=== PATIENT | female | born 1965 | race Caucasian/White ===

== ENCOUNTER 2020-09-12 10:12 | Emergency (ER) | payer BC, SELFPAY ==
[2020-09-12 10:12] VITALS: BP 118/72; PULSE 63; RESP 16; TEMP 36.4; O2SAT 98
--- NOTE | 2020-09-12 10:24 | ED.WOUNDLAC ---
HPI - Wound/Laceration General Chief Complaint: Wound/Laceration Stated Complaint: R leg lac on back of knee Source: patient and RN notes reviewed Mode of arrival: wheelchair Limitations: no limitations History of Present Illness Onset (ago): minute(s) (20) Extremity Location: Right: lower leg ( Popliteal fossa) Place: home Patient tetanus UTD: No Context: accidental Associated symptoms: pain Review of Systems Review of Systems: All systems reviewed & are unremarkable except as noted in HPI and below PMFSH Past Medical History Medical History (Updated 09/12/20 @ 10:52 by Ryan Naik MD) Fibromyalgia GERD (gastroesophageal reflux disease) Hypothyroidism Surgical History Surgical History (Updated 09/12/20 @ 10:52 by Ryan Naik MD) H/O shoulder surgery left History of lumpectomy of left breast Previous section Social History Social History (Updated 09/12/20 @ 10:52 by Ryan Naik MD) Smoking status: Never smoker Alcohol intake: never Substance use: never Exam Const: General: healthy appearing and no acute distress Nutritional Appearance: obese Orientation/consciousness: patient oriented x3 HENMT: Head: normal to inspection Ears: external ears normal Face and sinus: normal facial exam Eyes: Conjunctivae: conjunctivae normal Pupils: Equal, round and reactive pupils present EOM: EOMs intact bilaterally Neck: Neck: normal visual inspection Resp: Effort & Inspection: normal respiratory effort Auscultation: clear to auscultation bilaterally Cardio: Rate: regular rate Rhythm: regular rhythm GI: GI Palp: Yes Soft to palpation and No Tenderness to palpation present (GI) Auscultation: normal bowel sounds Back/Spine/Pelvis: Cervical Spine: cervical ROM normal Thoracic/Lumbar Spine: thoraco-lumbar ROM normal Skin: Wounds: wounds noted laceration right posterior knee size (2.5 cm) and open Neuro: General: patient oriented x3, moves all extremities, no meningeal signs and no focal motor deficits Speech: normal speech Extrem: General: normal to inspection and no clubbing, cyanosis or edema Psych: Appearance: grossly normal and well kempt Mental Status: mental status grossly normal Affect: normal affect Attitude: cooperative Thought content: Yes Normal thought content present Procedures Laceration Laceration 1: Date: 09/12/20 Site: lower extremity Side (If applicable): right Size (cm): 2.5 Description: linear Depth: simple, single layer (deep into Sub-Q tissue) Local Anesthetic: lidocaine 1% and with epi Amount of anesthesia used (mL): 5 Pre-repair: wound explored, irrigated and deep structures intact ====== Skin Level ====== Skin layer closed with: nylon Size (cm): 4-0 Number of sutures: 6 Technique: running ====== Subcutaneous Layer ====== Subcutaneous layer closed with: vicryl Size: 4-0 Number of sutures: 1 ====== Muscle Layer ====== ====== Tendon Layer ====== Discharge Plan Discharge Clinical Impression: Laceration Patient Disposition: Home, Self-Care Condition: Stable Instructions: Antibiotic Form, Laceration (ED) Additional Instructions: do not get wet for 36 hours. Use Tylenol and or Motrin as needed for pain. Sutures out in 10 days. Prescriptions: New cephalexin 500 mg capsule 500 mg PO Q8H 7 Days Qty: 21 RF: 0 Follow-up/Referrals: Nicki Kasper MD [Primary Care Provider] - Time of Disposition: 10:50
[2020-09-12] MEDS: LIDO 1%/EPINEPHRINE 1:100,000 10 ML VIAL INFILTRATE (10:30)
[2020-09-12] MEDS: TETANUS,DIPHTHERIA,AC PERTUSSIS ADULT 0.5 ML (ADACEL) IM (10:40)
[2020-09-12 10:52] VITALS: PULSE 65; RESP 15; O2SAT 98
== END 2020-09-12 10:55 | disposition home or self-care (01) ==
PROVIDERS: Emergency Provider Emergency Medicine; PCP Family Medicine
DX: S81.811A Laceration without foreign body, right lower leg, initial encounter (principal); W45.8XXA Other foreign body or object entering through skin, initial encounter
CPT/HCPCS: 12031; 90471; 90715; 99283

== ENCOUNTER 2020-09-16 14:53 | Outpatient (CLI) | payer BC, SELFPAY ==
[2020-09-16 15:11] LABS: Hematocrit 36.8 % (35.0-49.0); Hemoglobin 12.4 g/dL (12.0-15.0); Mean Corpuscular HGB Conc 33.7 g/dL (32.0-36.0); Mean Corpuscular Hemoglobin 29.5 pg (27.0-31.0); Mean Corpuscular Volume 87.6 fL (78.0-102.0); Mean Platelet Volume 9.8 fl (9.2-11.8); Platelet Count Result 198 K/mm3 (150-420); Red Cell Distribution Width 13.2 % (11.6-14.4); White Blood Count 6.5 K/mm3 (4.8-10.8)
[2020-09-16 16:08] LABS: Alanine Aminotransferase 28 U/L (14-59); Albumin Level 3.5 g/dL (3.4-5.0); Alkaline Phosphatase 104 U/L (46-116); Anion Gap 12 mmol/L (8-16); Aspartate Amino Transferase 21 U/L (15-37); Bilirubin,Total 0.5 mg/dL (0.00-1.00); Blood Urea Nitrogen 16 mg/dL (7-18); Calcium 9.3 mg/dL (8.5-10.1); Carbon Dioxide 25 mmol/L (21-32); Chloride 105 mmol/L (98-108); Cholesterol 233 mg/dL (0-200); Estimated Glomerular Filt Rate 57; Glucose 95 mg/dL (70-99); HDL Direct 45 mg/dL (40-60); LDL Cholesterol Calculated 141 mg/dL (<130); Osmolality Calculated 295 mOsm/kg (285-295); Sodium 142 mmol/L (136-145); Triglycerides 235 mg/dL (0-150)
[2020-09-16 16:26] LABS: Thyroid Stimulating Hormone Reflex 0.26 u/IU/mL (0.36-3.74)
== END 2020-09-16 14:54 | disposition home or self-care (01) ==
LOC: CHSLAB 14:56
PROVIDERS: PCP Family Medicine; Visit Provider Family Medicine
DX: K21.9 Gastro-esophageal reflux disease without esophagitis (principal); E03.9 Hypothyroidism, unspecified; E11.9 Type 2 diabetes mellitus without complications
CPT/HCPCS: 36415; 80053; 80061; 84439; 84443; 85027

== ENCOUNTER 2020-09-22 13:58 | Outpatient (CLI) | payer BC, SELFPAY ==
--- NOTE | ~2020-09-22 | XR_ITS ---
EXAMINATION: XR knee RT 3V DATE: 09/22/2020 14:25 INDICATION: Right knee pain. TECHNIQUE: 3 views of right knee were obtained. COMPARISON: None. FINDINGS: Bone alignment is normal. No fracture. There is mild osteoarthritis of medial and patellofe moral compartments characterized by tiny marginal osteophytes. No knee joint effusion. IMPRESSION: 1. Mild right knee osteoarthritis. Reviewed, dictated and finalized at location A.
== END 2020-09-22 13:59 | disposition home or self-care (01) ==
LOC: CHSIMG 14:04
PROVIDERS: PCP Family Medicine; Visit Provider Family Medicine
DX: M25.561 Pain in right knee (principal)
CPT/HCPCS: 73562

== ENCOUNTER 2020-10-10 10:32 | Outpatient (CLI) | payer BC, SELFPAY ==
--- NOTE | ~2020-10-10 | MR_ITS ---
EXAMINATION: MR lumbar spine wo con DATE: 10/10/2020 11:22 INDICATION: Spinal stenosis TECHNIQUE: Magnetic resonance imaging (MRI) of the lumbar spine was performed without intravenous con trast. Sequences included sagittal T2-weighted FSE, sagittal T2-weighted FS FSE, sagittal T1-weighted FSE, and axial T2-weighted FSE. COMPARISON: None FINDINGS: 7 degree lumbar dextrocurvature. 3 mm retrolisthesis L5 on S1. Vertebral body heights are normal. Mod erate disc height loss at L1-L2 and L5-S1 with fibrofatty and fibrous vascular endplate changes at irvin th levels. Marrow signal is otherwise normal. Mild disc height loss at L4-L5. The conus medullaris te rminates at L1-L2. There is normal signal in the caudal spinal cord. Paravertebral soft tissues are u nremarkable. The following disc levels are specifically discussed: T12-L1: The disc does not extend beyond the endplate margin. There is mild right and minimal left fac et joint osteoarthritis. There is no neural foraminal stenosis. There is no central canal stenosis. L1-L2: Disc is bulging. There is mild right and minimal left facet joint osteoarthritis. There is no neural foraminal stenosis. There is mild central canal stenosis. L2-L3: The disc does not extend beyond the endplate margin. There is right and moderate left facet shelli int osteoarthritis. There is mild bilateral neural foraminal stenosis. There is no central canal sten osis. L3-L4: Annular fissure with small disc extrusion at the right foraminal zone. There is hypertrophy of the ligamentum flavum. There is moderate bilateral facet joint osteoarthritis. There is mild bilate ral neural foraminal stenosis. There is mild central canal stenosis. L4-L5: Disc is bulging. There is hypertrophy of the ligamentum flavum. There is mild bilateral facet joint osteoarthritis. There is mild bilateral neural foraminal stenosis. There is moderate central c anal stenosis. L5-S1: Disc is bulging and there are small L5 inferior endplate osteophytes at the bilateral neural f oramina. There is mild bilateral facet joint osteoarthritis. There is moderate bilateral neural zeinab inal stenosis. There is no central canal stenosis. IMPRESSION: 1. Mild to moderate lumbar spondylosis. Reviewed, dictated and finalized at location A.
--- NOTE | ~2020-10-10 | XR_ITS ---
EXAMINATION: XR lumbar spine 2-3V DATE: 10/10/2020 11:21 INDICATION: Spinal stenosis, low back pain TECHNIQUE: Anteroposterior and lateral views of the lumbar spine, and cone-down lateral view of the l umbosacral junction were obtained. COMPARISON: None FINDINGS: There is no fracture. There are 3 mm of retrolisthesis of L5 on S1. There is moderate loss of intervertebral disc space height at L5-S1 and mild loss of intervertebral disc space height at L4- 5. Vertebral body heights are maintained. Small degenerative osteophytes project from the anterior en dplates of multiple vertebral bodies. There is facet osteoarthritis of the lower lumbar spine. The irvin wel gas pattern is normal. There are phleboliths of the pelvis. Mild osteoarthritis is noted in the h ips. IMPRESSION: 1. Moderate lower lumbar spondylosis without acute findings. Reviewed, dictated and finalized at location B.
== END 2020-10-10 10:33 | disposition home or self-care (01) ==
LOC: CHSIMG 10:33
PROVIDERS: PCP Family Medicine; Visit Provider Nurse Practitioner Adult Health
DX: M48.062 Spinal stenosis, lumbar region with neurogenic claudication (principal)
CPT/HCPCS: 72100; 72148

== ENCOUNTER 2021-01-06 08:44 | Outpatient (CLI) | payer BC, SELFPAY ==
[2021-01-06 09:59] LABS: Thyroid Stimulating Hormone 2.15 uIU/mL (0.36-3.74)
== END 2021-01-06 08:45 | disposition home or self-care (01) ==
PROVIDERS: PCP Family Medicine; Visit Provider Family Medicine
DX: E03.9 Hypothyroidism, unspecified (principal)
CPT/HCPCS: 36415; 84443

== ENCOUNTER 2021-03-17 17:32 | Outpatient (NON) | payer BC, SELFPAY | END 2021-03-17 17:33 | disposition home or self-care (01) | LOC: CHSLAB 17:33 | PROVIDERS: Visit Provider Nurse Practitioner Family | DX: R30.0 Dysuria (principal) | CPT/HCPCS: 87086 ==

== ENCOUNTER 2021-07-14 07:28 | Outpatient (CLI) | payer BC, SELFPAY ==
[2021-07-14 08:38] LABS: Cholesterol 268 mg/dL (0-200); Free T4 Free Thyroxine 0.83 ng/dL (0.76-1.46); HDL Direct 49 mg/dL (40-60); LDL Cholesterol Calculated 164 mg/dL (<130); Thyroid Stimulating Hormone 2.02 uIU/mL (0.36-3.74); Triglycerides 275 mg/dL (0-150)
== END 2021-07-14 07:29 | disposition home or self-care (01) ==
LOC: CHSLAB 07:31
PROVIDERS: PCP Family Medicine; Visit Provider Nurse Practitioner Family
DX: Z00.00 Encounter for general adult medical examination without abnormal findings (principal); E03.9 Hypothyroidism, unspecified
CPT/HCPCS: 36415; 80061; 84439; 84443

== ENCOUNTER 2022-01-25 16:40 | Outpatient (CLI) | payer BC, SELFPAY ==
--- NOTE | ~2022-01-25 | XR_ITS ---
XR chest 2V DATE: 01/25/2022 16:53 INDICATION: Shortness of breath. Asthma exacerbation. TECHNIQUE: 2 views COMPARISON: 01/14/2016 2 view chest FINDINGS: Heart size is within normal limits. There is mild aortic tortuosity. No hilar or mediastina l enlargement. No pulmonary infiltrate or consolidation, pleural effusion or pulmonary vascular congestion or pneumo thorax is detected. IMPRESSION: No active cardiopulmonary disease Reviewed, dictated and finalized at location A.
== END 2022-01-25 16:41 | disposition home or self-care (01) ==
LOC: CHSIMG 16:41
PROVIDERS: PCP Family Medicine; Visit Provider Family Medicine
DX: J45.901 Unspecified asthma with (acute) exacerbation (principal)
CPT/HCPCS: 71046

== ENCOUNTER 2023-01-03 07:04 | Outpatient (CLI) | payer OTHER, SELFPAY ==
[2023-01-03 07:25] LABS: Hemoglobin A1C 5.6 % (<5.7)
[2023-01-03 07:55] LABS: Alanine Aminotransferase 24 U/L (14-59); Albumin Level 3.5 g/dL (3.4-5.0); Alkaline Phosphatase 86 U/L (46-116); Anion Gap 9 mmol/L (8-16); Aspartate Amino Transferase 15 U/L (15-37); Bilirubin,Total 0.8 mg/dL (0.00-1.00); Blood Urea Nitrogen 12 mg/dL (7-18); Calcium 9.4 mg/dL (8.5-10.1); Carbon Dioxide 27 mmol/L (21-32); Chloride 106 mmol/L (98-108); Cholesterol 260 mg/dL (0-200); Estimated Glomerular Filt Rate 47; Free T4 Free Thyroxine 1.08 ng/dL (0.76-1.46); Glucose 100 mg/dL (70-99); HDL Direct 59 mg/dL (40-60); LDL Cholesterol Calculated 171 mg/dL (<130); Osmolality Calculated 293 mOsm/kg (285-295); Potassium 4.2 mmol/L (3.5-5.1); Sodium 142 mmol/L (136-145); Thyroid Stimulating Hormone 1.51 uIU/mL (0.36-3.74); Total Protein 6.8 g/dL (6.4-8.2); Triglycerides 149 mg/dL (0-150)
[2023-01-05 06:21] LABS: Total Triiodothyronine (T3) 104.2 ng/dL (76-181)
== END 2023-01-03 07:05 | disposition home or self-care (01) ==
LOC: CHSLAB 07:06
PROVIDERS: PCP Emergency Medicine; Visit Provider Emergency Medicine
DX: E03.9 Hypothyroidism, unspecified (principal); E66.9 Obesity, unspecified
CPT/HCPCS: 36415; 80053; 80061; 83036; 84439; 84443; 84480

== ENCOUNTER 2023-04-28 12:47 | Outpatient (CLI) | payer OTHER, SELFPAY ==
--- NOTE | ~2023-04-28 | XR_ITS ---
XR shoulder RT min 2V DATE: 04/28/2023 14:50 INDICATION: Right shoulder pain, limited range of motion after a fall in February 2023 TECHNIQUE: 4 views COMPARISON: None FINDINGS: There is mild spurring of the glenoid process consistent with mild glenohumeral osteoarthri tis. Normal alignment at the glenohumeral and acromioclavicular joints. No fracture or dislocation, p eriosteal reaction or bone destruction or abnormal right shoulder soft tissue calcification. Moderate degenerative disc disease and prominent uncovertebral joint spurring is noted C5-6 and C6-7. IMPRESSION: Lower cervical spondylosis Mild right glenohumeral osteoarthritis Reviewed, dictated and finalized at location B. [facility]
== END 2023-04-28 12:48 ==
PROVIDERS: PCP Emergency Medicine; Visit Provider Emergency Medicine
DX: M25.511 Pain in right shoulder (principal); M43.02 Spondylolysis, cervical region; M19.011 Primary osteoarthritis, right shoulder
CPT/HCPCS: 73030

== ENCOUNTER 2023-06-07 20:16 | Emergency (ER) | payer OTHER, MEDICAID, SELFPAY ==
--- NOTE | ~2023-06-07 | CT_ITS ---
EXAMINATION: CT BRAIN W/O DATE: 06/07/2023 22:26 INDICATION: Head injury after fall TECHNIQUE: Computed tomography (CT) of the head was performed without intravenous contrast. The dose- length product was 605.33 mGy-cm. Automated exposure control and iterative reconstruction technique w ere employed. COMPARISON: No prior studies for comparison. FINDINGS: Normal brain parenchymal volume for age. Normal ferrari-white differentiation. No acute intrac ranial hemorrhage, infarction, mass or mass effect. There are scattered mild periventricular and subc ortical white matter changes, most likely related to small vessel ischemic disease (microangiopathy). No ventriculomegaly or midline shift. Midline sagittal images demonstrate a normal corpus callosum, c raniovertebral junction and sella turcica. Basilar cisterns are patent. There is mucosal thickening of the sphenoid and ethmoid sinuses. Mastoids are pneumatized. No depress ed skull fractures. IMPRESSION: 1. No acute intracranial abnormality. 2: Mild sinus disease. Reviewed, dictated and finalized at location A.
--- NOTE | ~2023-06-07 | XR_ITS ---
XR shoulder LT min 2V 06/07/2023 22:28 Indication: Shoulder pain after fall Procedure: 2 views left shoulder Comparison: No prior studies for comparison. Findings: No fracture or traumatic malalignment. There are changes of clavicular osteotomy. No soft t issue abnormality. No foreign body. Impression: 1: No acute fracture. Reviewed, dictated and finalized at location A. Impression: 1: No acute fracture.
--- NOTE | ~2023-06-07 | CT_ITS ---
EXAMINATION: CT cervical spine wo con DATE: 06/07/2023 22:28 INDICATION: Neck pain after fall TECHNIQUE: Computed tomography (CT) of the cervical spine was performed without intravenous contrast. The dose-length product was 1088 mGy-cm. Automated exposure control and iterative reconstruction haile hnique were employed. COMPARISON: None FINDINGS: Normal cervical alignment. There is degenerative disc disease at C5-6 and C6-7. Small dorsa l osteophytes present at C5-6. Craniovertebral junction is normal. Odontoid process is normal. No bertha dence for perched facet. No significant paraspinal soft tissue abnormality. Lung apices are normal. M oderate lower uncinate and facet degenerative change. IMPRESSION: 1. No acute abnormality of the cervical spine. Reviewed, dictated and finalized at location A.
--- NOTE | ~2023-06-07 | CT_ITS ---
EXAMINATION: CT chest abdomen pelvis wo con DATE: 06/07/2023 22:46 CDT INDICATION: Accidental fall. Chest and abdomen pain. TECHNIQUE: Computed tomography (CT) of the chest, abdomen, and pelvis was performed without intraveno us contrast. The dose-length product was 1562.70 mGy-cm. Automated exposure control and iterative rec onstruction technique were employed. COMPARISON: CT dated 07/13/2007 FINDINGS: CHEST CT: Heart size normal. No significant pleural or pericardial effusion. No thoracic lymphadenopathy. No si gnificant vascular abnormality. No focal airspace consolidation. No endobronchial lesions. There is d ependent atelectasis. No pneumothorax. ABDOMEN/PELVIS CT: There are acute left transverse process fractures at L1 and L2. There is mild multilevel thoracic and lumbar spondylosis. Bladder is moderately distended. There are gallstones. The liver, spleen, pancre as, adrenal glands and kidneys are unremarkable. Nonobstructive bowel gas pattern. Small fat-containi ng umbilical hernia. No free air or free fluid. No significant vascular abnormality. No lymphadenopat hy. IMPRESSION: 1. Acute left L1 and L2 transverse process fractures. 2: Cholelithiasis. Reviewed, dictated and finalized at location A.
--- NOTE | ~2023-06-07 | CT_ITS ---
EXAMINATION: CT lumbar spine wo con DATE: 06/07/2023 22:27 INDICATION: Back pain after fall TECHNIQUE: Computed tomography (CT) of the lumbar spine was performed without intravenous contrast. T he dose-length product was 1562.70 mGy-cm. Automated exposure control and iterative reconstruction technique were employed. COMPARISON: None FINDINGS: Vertebral body heights are maintained. There is disc narrowing and vacuum phenomena at L4-5 and L5-S1. There is mild dextroscoliosis. There is facet degenerative change of the mid and lower frantz mbar spine. There is bilateral neural foraminal narrowing at L5-S1. No acute fracture or traumatic ma lalignment. IMPRESSION: 1. No acute abnormality of the lumbar spine. 2: Moderate lumbar spondylosis with bilateral neural foraminal narrowing at L5-S1. Reviewed, dictated and finalized at location A. IMPRESSION: 1. No acute abnormality of the lumbar spine. 2: Moderate lumbar spondylosis with bilateral neural foraminal narrowing at L5- S1.
[2023-06-07 20:21] VITALS: BP 128/95; PULSE 87; RESP 20; TEMP 36.2; O2SAT 100
--- NOTE | 2023-06-07 20:46 | ED.FALL ---
HPI - Fall General Chief Complaint: Fall Stated Complaint: fall Source: patient Mode of arrival: ambulatory Limitations: no limitations History of Present Illness HPI Narrative: 57 old female with asthma, fibromyalgia was mopping floor when she slipped and fell on her buttocks. She presents with -- head injury. She fell on left side of her head. No loss of consciousness. No headache or vomiting. -- Mid and lower back pain. -- Left shoulder pain with decreased range of motion. -- Left hip pain with decreased range of motion no ENT bleeding no bruising or laceration noted. MD complaint: fall Onset (ago): hour(s) ( 2 hours ago) Fall from: standing Fall witnessed: no Place fall occurred: home Loss of consciousness: none Prolonged down time: no Symptoms prior to fall: none Context: tripped/slipped Location of injury: head and back Location of injury - extremities: Left: shoulder and Right: thigh Quality: aching Associated symptoms (after fall): headache, neck pain and other ( back pain, pain, left hip pain) Related Data Home Medications Medication Instructions Recorded Confirmed hydrocodone 5 mg-acetaminophen 325 1 tablet PO Q6-12H PRN Pain 09/12/20 04/21/23 mg tablet albuterol sulfate 90 mcg/actuation 1 puff inhalation Q4H PRN 12/21/22 04/21/23 aerosol inhaler nortriptyline 25 mg capsule 25 mg PO DAILY 12/21/22 04/21/23 pregabalin 200 mg capsule 200 mg PO BID 12/21/22 04/21/23 Allergies Allergy/AdvReac Type Severity Reaction Status Date / Time Sulfa (Sulfonamide Allergy Severe Swelling Verified 04/21/23 13:11 Antibiotics) of Lip/Tongue/Throat Review of Systems Review of Systems: All systems reviewed & are unremarkable except as noted in HPI and below Constitutional: Constitutional: Reports as per HPI and Reports no additional constitutional complaints Eyes: Eyes: Reports as per HPI and Reports no additional eye complaints ENT: Reports system reviewed and no additional complaints, except as documented and Reports as per HPI Cardiovascular: Cardiovascular: Reports as per HPI and Reports no additional cardiovascular complaints Respiratory: Respiratory: Reports as per HPI and Reports no additional respiratory complaints Gastrointestinal: Gastrointestinal: Reports as per HPI and Reports no additional gastrointestinal complaints Genitourinary: Genitourinary: Reports no additional female genitourinary complaints and Reports as per HPI Musculoskeletal: Musculoskeletal: Reports no additional musculoskeletal complaints, Reports as per HPI, Reports back pain and Reports arthralgias Comments: neck pain, mid and lower back pain, left shoulder pain, left hip pain, patient was able to stand up after the fall. Integumentary/Breasts: Skin/Breast: Reports system reviewed and no additional complaints, except as docu and Reports as per HPI Neurologic: Reports system reviewed and no additional complaints, except as documented and Reports as per HPI Psychiatric: Psychiatric: Reports no additional psychiatric complaints and Reports as per HPI Endocrine: Endocrine: Reports no additional endocrine complaints and Reports as per HPI Hematologic/Lymphatic: Hematologic/Lymphatic: Reports no additional hematologic/lymphatic complaints and Reports as per HPI Allergic/Immunologic: Allergic/Immunologic: Reports no additional allergic/immunologic complaints and Reports as per HPI PMFSH Past Medical History Medical History Asthma Fibromyalgia GERD (gastroesophageal reflux disease) Hypothyroidism Surgical History Surgical History H/O shoulder surgery left History of lumpectomy of left breast Previous section Social History Social History Smoking status: Never smoker Alcohol intake: never Substance use: never Substance
[2023-06-07] MEDS: HYDROmorphone HCL INJ (*CRX) 2 MG/ML VIAL 0.5 MG IM ×2 (21:22→23:05)
[2023-06-07] MEDS: ONDANSETRON HCL ODT 4 MG TABLET PO (21:23)
--- NOTE | 2023-06-07 21:26 | PC.NURSE ---
PATIENT MEDICATED FOR PAIN, SEE MAR. SON AT BEDSIDE. PATIENT TEARFUL, MOANING AND IN INTENSE PAIN. IMAGING AT BEDSIDE.
--- NOTE | 2023-06-07 22:16 | PC.NURSE ---
ERP AT BEDSIDE. PATIENT REPORTS IMPROVED PAIN, AWAITING RESULTS OF IMAGING.
[2023-06-07 23:09] VITALS: BP 106/69; PULSE 75; RESP 18; TEMP 36.2; O2SAT 100
--- NOTE | 2023-06-07 23:19 | PC.NURSE ---
DR. AMANDA AT PATIENT BEDSIDE FOR UPDATE OF IMAGING. PATIENT SON REMAINS AT BEDSIDE. PATIENT DENIES FURTHER NEEDS. RN MONITORING. CALL LIGHT WITHIN REACH.
== END 2023-06-07 23:59 | disposition home or self-care (01) ==
PROVIDERS: Emergency Provider Internal Medicine Critical Care Medicine; PCP Emergency Medicine
DX: S32.009A Unspecified fracture of unspecified lumbar vertebra, initial encounter for closed fracture (principal); S09.90XA Unspecified injury of head, initial encounter; E03.9 Hypothyroidism, unspecified; W01.0XXA Fall on same level from slipping, tripping and stumbling without subsequent striking against object, initial encounter; Y92.009 Unspecified place in unspecified non-institutional (private) residence as the place of occurrence of the external cause
CPT/HCPCS: 70450; 71250; 72125; 72131; 73030; 74176; 96372; 99284; A9270; J1170

== ENCOUNTER 2024-04-23 09:13 | Outpatient (CLI) | payer MEDICAID, SELFPAY ==
[2024-04-23 09:34] LABS: Basophils Absolute Auto 0.03 K/mm3 (0.00-0.10); Basophils Percent Auto 0.5 % (0.0-1.0); Eosinophils Absolute Auto 0.18 K/mm3 (0.02-0.50); Eosinophils Percent Auto 3.3 % (1.0-6.0); Hematocrit 39.8 % (35.0-49.0); Hemoglobin 12.6 g/dL (12.0-15.0); Immature Granulocyte Absolute 0.02 K/mm3 (0.00-0.00); Immature Granulocyte Percent A 0.4 % (0.0-0.0); Lymphocytes Absolute Auto 2.15 K/mm3 (1.10-4.50); Lymphocytes Percent Auto 39.3 % (18.0-42.0); Mean Corpuscular HGB Conc 31.7 g/dL (32-36); Mean Corpuscular Hemoglobin 28.9 pg (27.0-31.0); Mean Corpuscular Volume 91.3 fL (78.0-102.0); Mean Platelet Volume 8.8 fl (9.2-11.8); Monocytes Absolute Auto 0.46 K/mm3 (0.10-0.90); Monocytes Percent Auto 8.4 % (2.0-11.0); Neutrophils Absolute Auto 2.63 K/mm3 (1.70-7.20); Neutrophils Percent Auto 48.1 % (50.0-70.0); Platelet Count Result 271 K/mm3 (150-420); Red Blood Count 4.36 M/mm3 (4.20-5.40); Red Cell Distribution Width 13.6 % (11.6-14.4); White Blood Count 5.5 K/mm3 (4.8-10.8)
--- OUTSIDE RECORDS SUMMARY | 2024-04-23 09:38 | XMS_ITS ---
Care Plan - [facility] Created on: April 23, 2024 SHIRA MERAZ : 1965 Sex: Female Author Organization [facility] Address [address] [place] [address] Phone Care Team Providers Care Used Car Sales Manager Name Role Phone MARVIN HOOVER Unavailable [phone] JUAN JOSE AMIN DO Primary Care Provider [phone]
--- OUTSIDE RECORDS SUMMARY | 2024-04-23 09:38 | XMS_ITS | Clinical Summary ---
Author Organization [facility] Address [address] [place] [address] Phone Care Team Providers Care Senior Research Scientist Name Role Phone KALIA MORROW-CLARITAMARVIN Unavailable [phone] JUAN JOSE AMIN DO Primary Care Provider [phone] Reason for Visit and Chief Complaint The Chief Complaint is: 3 MO FU Plan of Treatment Education and Decision Aids were provided during visit for: Pill Count: HYDROCODONE Last Documented On 3 8:49AM ; [facility] Pill Count: Patient did not bring pain medication to appointment for pill count, per policy. Advised in order to continue to safely prescribe opioids, medication must be brought to each appointment Last Documented On 3 8:49AM ; [facility] Assessments Includes: Assessments from this encounter Findings - Sacroiliitis [M46.1 - Sacroiliitis, not elsewhere classified] - Last Documented On 02/02/2023 9:08AM ; [facility] - Right trochanteric bursitis [M70.61 - Trochanteric bursitis, right hip] - Last Documented On 02/02/2023 9:08AM ; [facility] - Left trochanteric bursitis [M70.62 - Trochanteric bursitis, left hip] - Last Documented On 02/02/2023 9:08AM ; 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 Advised in order to continue to safely prescribe opioids, medication must be brought to each appointment Last Documented On 3 8:49AM ; [facility] Medical Equipment - Implanted Devices Includes: Current Devices No Medical Equipment Recorded Medications Includes: Medications discussed during this encounter and other current Medications Discontinued / Stopped on this date MARVIN CENTENO on 10/11/2022 Nortriptyline HCl 25 MG Oral Capsule Prov ider: MARIVN CENTENO Diagnosis: Last Documented On 02/02/2023 8:47AM By Maggie MEDRANO ; [facility] New / Renewed during this visit MARVIN CENTENO on 02/02/2023 Celecoxib 200 MG Oral Capsule Provider: MARVIN CENTENO 90 day supply: 90 capsule, 0 refills 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, lumbar region 1 capsule daily with a meal Pharmacy: [facility] alfon[address], [phone] - Last Documented On 4 9:07AM By MARVIN CENTENO ; [facility] Current Medications (continue as prescribed) Pregabalin 200 MG Oral Capsule 07/10/2023 Provider: MARVIN NICHOLEBC Diagnosis: TAKE ONE CAPSULE BY MOUTH TWICE A DAY Last Documented On 4 4:42PM [facility] ; [facility] Nortriptyline HCl 25 MG Oral Capsule 05/23/2023 Prov ider: MARVIN NICHOLE Diagnosis: TAKE ONE CAPSULE BY MOUTH DAILY Last Documented On 4 1:12PM [facility] ; [facility] HYDROcodone-Acetaminophen 5- 325 MG Oral Tablet 05/03/2023 Provider: MARVIN NICHOLE 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, lumbar region 1/2 to 1 po daily prn Last Documented On 4 9:17AM [facility] ; [facility] Celecoxib 200 MG Oral Capsule 05/03/2023 Provider: MARVIN NICHOLE 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, lumbar region 1 capsule daily with a meal Last Documented On 4 9:17AM By [facility] ; [facility] Levothyroxine Sodium 88 MCG Oral Tablet 02/01/2023 Jagjit hess: Diagnosis: Last Documented On 02/02/2023 8:48AM By Maggie MEDRANO ; [facility] Montelukast Sodium 10 MG Oral Tablet 01/11/2023 Prov ider: JUAN JOSE AMIN DO Diagnosis: Last Documented On 02/02/2023 8:48AM By Maggie MEDRANO ; [facility] DULoxetine HCl 20 MG Oral Ca psule Delayed Release Particles 11/29/2022 Provider: TOMMY WATERS MD Diagnosis: Last Documented On 02/02/2023 8:48AM By Maggie MEDRANO ; [facility] Albuterol Sulfate HFA 108 (9 0 Base) MCG/ACT Inhalation Aerosol Solution 10/07/2020 Provider: Diagnosis: Last Documented On 3 9:52AM By [facility]- ; [facility] Omeprazole 40 MG Oral Capsule Delayed Release 10/08/19 Provider: Diagnosis: Last Documented On 3 9:52AM By JENNIFER TEE ; [facility] Euthyrox 112 MCG Oral Tablet 10/07/2020 Provider: Diagnosis: Last Documented On 3 9:52AM By JENNIFER TEE ; [facility] Medications Administered Includes: Administered Medications from this encounter No Administered Medications Recorded Vital Signs Includes: Vital Signs from this encounter Vital Name 02/02/2023 08:44A Blood Pressure Sitting L 100/72 Pulse Rate-Sitting (bpm) 74 Temp-Temporal 96.6 Height (in) 65 Weight (lb) 202 Body Mass Index 33.6 Body Surface Area 2 Pain Level 3 Oxygen Saturation (%) 98 Last Documented: On 02/02/2023 8:47AM ; [facility] Results Includes: Results discussed during this encounter No Results Recorded For Specified Dates History of Present Illness Includes: History of Present Illness from this encounter HPI - Allergy list reviewed - Problem list reviewed - Medication reconciliation performed - Medication list reviewed - Prescription Drug Monitoring Program website checked. 09/07/22 - How much of the medication are you taking a day? PRN - Last dose of medication? MONDAY - Last drug screen appropriate 09/07/22 Discussion: Patient returns in follow-up for medication. She suffers from chronic low back pain. Symptoms have been tolerable. She continues home exercises. Celebrex, nortriptyline and pregabalin are used on a daily basis with benefit. Hydrocodone is prescribed for severe pain. She uses this sparingly. She is not in need of a refill at this time. Overall, medication regimen is providing substantial pain relief and improved function. She has no new complaints today. Past note: Patient presents in follow-up for chronic pain. Low back pain has been somewhat bothersome, but tolerable with the use of current medication regimen and stretches. Pregabalin is used twice daily with benefit. Celebrex also provides good relief. Nortriptyline caused side effects. Hydrocodone is used sparingly for severe pain only. She does not need a refill of this at this time. Overall, medication helps and allows her to maintain function levels. She continues home exercises as tolerated. [place] prescription monitoring site appropriate. Past visit 09/07/22: Patient presents in follow up for polyarthralgia, low back pain and generalized pain related to fibromyalgia. She reports some increased low back pain the last month or so. She did well with SI injections, but is hesitant to repeat these as they were extremely painful for her. She continues home exercises as tolerated. Patient stopped celecoxib a few weeks ago and looking back admits her pain has likely increased as a result. Amitriptyline helps at night, but does cause dry mouth. We can try nortriptyline and see if there are less side effects. Hydrocodone is used for more severe pain, sparingly. She was given #15 in May. She does need a refill. Past note: Patient presents in follow up to bilateral SI joint injections 3 weeks ago. She reports 75-80% relief with improved mobility. She also underwent trochanteric bursa injections last office visit that was very beneficial. She is doing well with current dosage of celebrex, pregabalin and amitriptyline. She stopped atorvastatin (per pcp), which seems to have helped myalgia. She has no new complaints. There are days her polyarthralgia and back pain , she will utilize 1/2-1 hydrocodone as needed. #15 given intermittently, she would like a refill. Encouraged to use sparingly and not for fibromyalgia symptoms. Past note: Patient here today for follow-up. She was unable to get the epidural ordered at her last office visit. She had a family emergency and had to leave town. Her authorization in the meantime. Patient wanted to follow back up to discuss her current pain issues. She states she has pain in the lateral hips that is significant. States it is very tender just to touch these areas and it is difficult to lay on her side at night, R>L. Reports previous trochanteric bursa injections that were beneficial. Additionally, she has pain in the low back that radiates into the buttock and groin area and a little bit down the right anterior thigh. The left side is mostly in the buttock and hip area. Getting up and down out of the chair or in and out of the car or trying to go up and down steps makes this pain much worse. She has difficulty even sitting on her right side because it is so tender. States she has a pillow at her office she has to sit on or she has to lean to the left side but then this side starts hurting.Walking seems to help a little bit with this pain but at work she sits a lot. She is doing heat, home exercises, and stretching without relief. On exam she is extremely tender over the SI joints. PRIOR VISIT: Patient presents in follow-up for low back pain. She describes return of radicular symptoms the last 3-4 weeks. This radiates to the bilateral lower extremities in multi dermatomal pattern. There are no motor or sensory changes. She has continued home exercises consistently since therapy was done last year. She failed conservative treatment, including physical therapy, activity modification and medication last year and obtained resolution of radicular symptoms with lumbar epidural injection in January 2021. She reports symptoms are progressing and she would like to address them before they fully limit her ability to function. She is having a difficult time standing for more than 20 minutes without pain. I recommend repeat epidural at this time. Past note: Patient returns in follow-up to right and left L3, L4, L5 RF ablation 3-4 weeks ago. She reports 80% relief ongoing. She is complaining of pain over the trochanteric bursa and is tender over the right SI joint. Overall, she is able to be more active with less back pain. She would like a trochanteric bursa injection today. She continues HEP. Imaging: All relevant imaging available was personally reviewed with the patient today with the following tests and results noted: MRI L spine 10/12/20: mild to moderate lumbar spondylosis. Disc bulging and small L5 inferior endplate osteophytes at bilateral neural foraminal narrowing moderate at L5-S1. At L4-5 facet hypertrophy, ligamentum flavum hypertrophy, mild bilateral neural foraminal stenosis and moderate central canal stenosis. At L3-4 hypertrophy of ligamentum flavum. Moderate facet osteoarthritis. Mild bilateral neural foraminal stenosis and mild central canal stenosis. Mild to moderate facet arthropathy at other levels. X-ray L spine 10/12/20 moderate lower lumbar spondylosis with retro thesis of L5 on S1 Social History Description Last Updated Tobacco non-user 05/03/2023 Last Documented On 3 8:43AM ; [facility] [PHQ-2] Patient Health Questionnaire 2 i tem total score: 15 (Scale: 0-6) 10/07/2020 Last Documented On 3 8:43AM ; [facility] Difficulty walking 10/07/2020 Last Documented On 3 8:43AM ; [facility] Smoking Status Unknown Procedures and Surgical History Includes: Procedures from this encounter Procedures Code Diagnosis Performing Provider Service L ocation Service Date use of tobacco assessment performed 1000F Last Documented On 3 8:49AM ; [facility] standardized depression screening: negative for symptoms 3351F Last Documented On 3 8:44AM ; [facility] review of medications documented 1160F Last Documented On 3 8:49AM ; [facility] assessment of suicide risk performed Last Documented On 3 8:44AM ; [facility] screening for adult depression: impressi on and score 0 Last Documented On 3 8:44AM ; [facility] SOAPP-R: total score 4 Last Documented On 3 8:44AM ; [facility] Medical History Includes: Medical History addressed during this encounter Description Last Updated Currently wearing eyeglasses 02/11/2022 Last Documented On 3 8:44AM ; [facility] Deep muscle stimulation 02/11/2022 Last Documented On 3 8:44AM ; [facility] Injection/Nerve blocks 02/11/2022 Last Documented On 3 8:44AM ; [facility] Moderate to severe pain 02/11/2022 Last Documented On 3 8:44AM ; [facility] Physical therapy 02/11/2022 Last Documented On 3 8:44AM ; [facility] Please list all illnesses/co nditions you have been diagnosed with: Fibromyalgia Degeneration of back 02/11/2022 Last Documented On 3 8:44AM ; [facility] Treatment with TENS unit 02/11/2022 Last Documented On 3 8:44AM ; [facility] Wearing contact lenses 02/11/2022 Last Documented On 3 8:44AM ; [facility] Family History Includes: Family History addressed during this encounter Description Last Updated Family history of Arthritis 02/11/2022 Last Documented On 3 8:44AM ; [facility] Family history of ischemic heart disease 02/11/2022 Last Documented On 3 8:44AM ; [facility] Family history of kidney disease 022 Last Documented On 3 8:44AM ; [facility] Maternal history of Arthritis 02/11/2022 Last Documented On 3 8:44AM ; [facility] Maternal history of reported family hist ory of seizures 02/11/2022 Last Documented On 3 8:44AM ; [facility] Sororal history of stroke/paralysis 01/25 Last Documented On 3 8:44AM ; [facility] Review of Systems Includes: Review of Systems from this encounter Systemic: No systemic symptoms other than noted. Fatigue and recent weight change. Head: No head symptoms other then noted. Neck: No neck pain. Cardiovascular: No cardiovascular symptoms other than noted. Pulmonary: No pulmonary symptoms other than noted. Wheezing. Gastrointestinal: No gastrointestinal symptoms other than noted. Endocrine: No endocrine symptoms other than noted. Polydipsia and temperature intolerance. Hematologic: No easy bleeding and no tendency for easy bruising. Musculoskeletal: Back pain, muscle aches, and pain localized to one or more joints. Neurological: No fainting passing out with needles or medical procedures. Psychological: No psychological symptoms other than noted. Skin: No skin symptoms other than noted. Dry skin. Mental Status Includes: Mental Status from this encounter No Mental Status Recorded Functional Status Includes: Functional Status from this encounter No Functional Status Recorded Physical Exam Includes: Physical Exam from this encounter Allergies Includes: Active Allergies Substance Type Reaction Onset Date Resolved Date Statu s Sulfa Antibiotics Allergy 10/07/2020 A ctive Last Documented On 4 8:38AM ; [facility] Encounters Encounter Provider Location Date Check-In Time Check-Out Time Diagnosis PAIN MANAGEMENT FOLLOW UP MARVIN MOTTA ANP-[facility] 02/03/20 23 8:20AM 9:02AM Chronic Pain Syndrome,Sacroil iitis,Fibromyalg ia,Spondylosis Without Myelopathy Or Radiculopathy Lumbar Region,Spinal Stenosis Lumbosacral,Burs itis Trochanteric Right,Bursitis Trochanteric Left,Custodial Use of Opiate Analgesic Insurance Includes: Active Insurance Policies Plan Name Member ID Group # Subscriber Relationship Effect mya Dates 1 - MEDICAID [place] [employer] [facility] [id number] SHIRA MERAZ Self Clinical Notes Includes: Clinical Notes from this encounter * Progress note Date Encounter Last Documented by 02/02/2023 PAIN MANAGEMENT FOLLOW UP Last d ocumented on 02/02/2023; 9:08 AM, MARVIN MOTTA ANP-; [facility] Chief Complaint The Chief Complaint is: 3 MO FU. History of Present Illness - Allergy list reviewed - Problem list reviewed - Medication reconciliation performed - Medication list reviewed - Prescription Drug Monitoring Program website checked. 09/07/22 - How much of the medication are you taking a day? PRN - Last dose of medication? MONDAY - Last drug screen appropriate 09/07/22 Discussion: Patient returns in follow-up for medication. She suffers from chronic low back pain. Symptoms have been tolerable. She continues home exercises. Celebrex, nortriptyline and pregabalin are used on a daily basis with benefit. Hydrocodone is prescribed for severe pain. She uses this sparingly. She is not in need of a refill at this time. Overall, medication regimen is providing substantial pain relief and improved function. She has no new complaints today. Past note: Patient presents in follow-up for chronic pain. Low back pain has been somewhat bothersome, but tolerable with the use of current medication regimen and stretches. Pregabalin is used twice daily with benefit. Celebrex also provides good relief. Nortriptyline caused side effects. Hydrocodone is used sparingly for severe pain only. She does not need a refill of this at this time. Overall, medication helps and allows her to maintain function levels. She continues home exercises as tolerated. [place] prescription monitoring site appropriate. Past visit 09/07/22: Patient presents in follow up for polyarthralgia, low back pain and generalized pain related to fibromyalgia. She reports some increased low back pain the last month or so. She did well with SI injections, but is hesitant to repeat these as they were extremely painful for her. She continues home exercises as tolerated. Patient stopped celecoxib a few weeks ago and looking back admits her pain has likely increased as a result. Amitriptyline helps at night, but does cause dry mouth. We can try nortriptyline and see if there are less side effects. Hydrocodone is used for more severe pain, sparingly. She was given #15 in May. She does need a refill. Past note: Patient presents in follow up to bilateral SI joint injections 3 weeks ago. She reports 75-80% relief with improved mobility. She also underwent trochanteric bursa injections last office visit that was very beneficial. She is doing well with current dosage of celebrex, pregabalin and amitriptyline. She stopped atorvastatin (per pcp), which seems to have helped myalgia. She has no new complaints. There are days her polyarthralgia and back pain , she will utilize 1/2-1 hydrocodone as needed. #15 given intermittently, she would like a refill. Encouraged to use sparingly and not for fibromyalgia symptoms. Past note: Patient here today for follow-up. She was unable to get the epidural ordered at her last office visit. She had a family emergency and had to leave town. Her authorization in the meantime. Patient wanted to follow back up to discuss her current pain issues. She states she has pain in the lateral hips that is significant. States it is very tender just to touch these areas and it is difficult to lay on her side at night, R>L. Reports previous trochanteric bursa injections that were beneficial. Additionally, she has pain in the low back that radiates into the buttock and groin area and a little bit down the right anterior thigh. The left side is mostly in the buttock and hip area. Getting up and down out of the chair or in and out of the car or trying to go up and down steps makes this pain much worse. She has difficulty even sitting on her right side because it is so tender. States she has a pillow at her office she has to sit on or she has to lean to the left side but then this side starts hurting.Walking seems to help a little bit with this pain but at work she sits a lot. She is doing heat, home exercises, and stretching without relief. On exam she is extremely tender over the SI joints. PRIOR VISIT: Patient presents in follow-up for low back pain. She describes return of radicular symptoms the last 3-4 weeks. This radiates to the bilateral lower extremities in multi dermatomal pattern. There are no motor or sensory changes. She has continued home exercises consistently since therapy was done last year. She failed conservative treatment, including physical therapy, activity modification and medication last year and obtained resolution of radicular symptoms with lumbar epidural injection in January 2021. She reports symptoms are progressing and she would like to address them before they fully limit her ability to function. She is having a difficult time standing for more than 20 minutes without pain. I recommend repeat epidural at this time. Past note: Patient returns in follow-up to right and left L3, L4, L5 RF ablation 3-4 weeks ago. She reports 80% relief ongoing. She is complaining of pain over the trochanteric bursa and is tender over the right SI joint. Overall, she is able to be more active with less back pain. She would like a trochanteric bursa injection today. She continues HEP. Imaging: All relevant imaging available was personally reviewed with the patient today with the following tests and results noted: MRI L spine 10/12/20: mild to moderate lumbar spondylosis. Disc bulging and small L5 inferior endplate osteophytes at bilateral neural foraminal narrowing moderate at L5-S1. At L4-5 facet hypertrophy, ligamentum flavum hypertrophy, mild bilateral neural foraminal stenosis and moderate central canal stenosis. At L3-4 hypertrophy of ligamentum flavum. Moderate facet osteoarthritis. Mild bilateral neural foraminal stenosis and mild central canal stenosis. Mild to moderate facet arthropathy at other levels. X-ray L spine 10/12/20 moderate lower lumbar spondylosis with retro thesis of L5 on S1 Test Conclusions PHQ-9 Score: 0 Date: 06/02/22 BPI Score: Date: MiDAS Score: Date: SOAPP-R Score: 4 LOW Date: 06/02/22 Past Medical/Surgical History Reported: Injection/Nerve blocks, Deep muscle stimulation, Treatment with TENS unit, Physical therapy, and Please list all illnesses/conditions you have been diagnosed with: Fibromyalgia Degeneration of back. Medical: Currently wearing eyeglasses, currently wearing contact lenses, and orthopedic history Left Knee Score mild pain Moderate to severe pain. Current Medication - Albuterol Sulfate HFA 108 (90 Base) MCG/ACT Inhalation Aerosol Solution as directed 0 days, 0 refills - Celecoxib 200 MG Oral Capsule 1 capsule daily with a meal, 90 days, 0 refills - DULoxetine HCl 20 MG Oral Capsule Delayed Release Particles 1 capsule daily 30 days, 0 refills - Euthyrox 112 MCG Oral Tablet One tablet daily 0 days, 0 refills - HYDROcodone-Acetaminophen 5-325 MG Oral Tablet 1 po daily prn for severe pain, 15 days, 0 refills - Levothyroxine Sodium 88 MCG Oral Tablet One tablet daily 30 days, 0 refills - Montelukast Sodium 10 MG Oral Tablet One tablet daily 30 days, 0 refills - Nortriptyline HCl 25 MG Oral Capsule 1 capsule daily, 30 days, 2 refills - Omeprazole 40 MG Oral Capsule Delayed Release 1 capsule daily 0 days, 0 refills - Pregabalin 200 MG Oral Capsule TAKE ONE CAPSULE BY MOUTH TWICE A DAY, 30 days, 2 refills Social History Difficulty walking. Tobacco use: Tobacco non-user. Functional: [PHQ-2] Patient Health Questionnaire 2 item total score: 15 (Scale: 0-6). Allergies - Sulfa Antibiotics Family History Arthritis Ischemic heart disease Kidney disease Maternal: Arthritis Reported family history of seizures Sororal: Stroke/paralysis Review Of Systems Systemic: No systemic symptoms other than noted. Fatigue and recent weight change. Head: No head symptoms other then noted. Neck: No neck pain. Cardiovascular: No cardiovascular symptoms other than noted. Pulmonary: No pulmonary symptoms other than noted. Wheezing. Gastrointestinal: No gastrointestinal symptoms other than noted. Endocrine: No endocrine symptoms other than noted. Polydipsia and temperature intolerance. Hematologic: No easy bleeding and no tendency for easy bruising. Musculoskeletal: Back pain, muscle aches, and pain localized to one or more joints. Neurological: No fainting passing out with needles or medical procedures. Psychological: No psychological symptoms other than noted. Skin: No skin symptoms other than noted. Dry skin. Physical Findings - Vitals taken 02/02/2023 08:44 am BP-Sitting L 100/72 mmHg Pulse Rate-Sitting 74 bpm Temp-Temporal 96.6 F Height 65 in Weight 202 lbs Body Mass Index 33.6 kg/m2 Body Surface Area 2 m2 Pain Level 3 Pain Level Note LOW BACK Oxygen Saturation 98 % Psychiatric: Psychiatric: Value PHQ9 score: 0 Constitutional: Well developed. Well nourished, obese. In no acute distress. HEENT: NC/AT. Anicteric. Clear Conjunctiva. PERRLA. M CVS: . No peripheral edema. Peripheral pulses palpable in all extremities. Spine/MSK: Tenderness bilateral lower level lumbar facet joints, minimal. Mild SI tenderness. Mild tenderness lumbar paraspinals and trigger points throughout. Gait: Not antalgic. Neuro: Awake. Alert. Oriented x3. Psych: No apparent distress. Mood normal. Affect normal. No pain behaviors. Skin: No rash. Normal pigmentation. Normal temperature Tests Educational Testing: Questionnaires PHQ-9: Value SOAPP-R: total score 4 Assessment - Sacroiliitis [M46.1 - Sacroiliitis, not elsewhere classified] - Right trochanteric bursitis [M70.61 - Trochanteric bursitis, right hip] - Left trochanteric bursitis [M70.62 - Trochanteric bursitis, left hip] - Lumbar spondylosis without myelopathy or radiculopathy [M47.816 - Spondylosis without myelopathy or radiculopathy, lumbar region] - Lumbosacral spinal stenosis [M48.07 - Spinal stenosis, lumbosacral region] - Fibromyalgia [M79.7 - Fibromyalgia] - Chronic pain syndrome [G89.4 - Chronic pain syndrome] - long term acute care registered nurse use of opiate analgesic [Z79.891 - nursing home (current) use of opiate analgesic] Therapy - Assessment of suicide risk performed Counseling/Education - Pill Count: HYDROCODONE - Pill Count: Patient did not bring pain medication to appointment for pill count, per policy. Advised in order to continue to safely prescribe opioids, medication must be brought to each appointment Discussed Will continue hydrocodone for more severe pain. Reports improvement in pain when used. Patient is able to maintain function levels with use of medication management. Reports no adverse side effects. Patient advised of risks and benefits of medication- including tolerance, dependence, addiction, constipation, itching, allergic reactions, sedation, impairment, respiratory depression or failure, development of hyperalgesia Patient was instructed on taking medication correctly; storing medication securely; disposing of medication properly and to never share medication. Patient will notify office when refill as needed. F/U 3 months Plan StartCited - Spondylosis w/o myelopathy or radiculopathy, lumbar region Celecoxib 200 MG capsule 1 capsule daily with a meal, 90 days, 0 refills EndCited Practice Management Use of tobacco assessment performed Review of medications documented; Standardized depression screening: negative for symptoms and for adult impression and score 0. Results of this interaction were communicated directly to the patient's referring and/or primary care provider. All imaging studies and test results discussed in the above document were personally reviewed and evaluated by the performing provider. For all patients on acute or chronic opioids, ongoing need for opioid analgesia is assessed at each visit with consideration of discontinuation or wean to lowest effective dose when possible and appropriate. Contents of this document have been edited for correctness, but may be subject to typographical or charge auditor errors. Verify all diagnoses, medications, dosages, and patient instructions with patient and/or the originator of this document. Care Team - CRISTHIAN WELSH- - Pain Management Health Reminders - Assess BMI satisfied 02/02/2023. - Assess Need for CT Lung Screen satisfied 02/02/2023. - Assess Tobacco Use satisfied 02/02/2023. - Depression Screening satisfied 02/02/2023. - Follow up plan for Depression Screening satisfied 02/02/2023.
--- OUTSIDE RECORDS SUMMARY | 2024-04-23 09:38 | XMS_ITS | Encounter Summary ---
Author Organization [facility] Address [address] [place] [address] [place] [address] Care Team Providers Care Foil Stamp Operator Name Role Phone Nicki Kasper MD Primary Care Provider [phone] Encounter Details Date Type Department Care Team (Late st Contact Info) Description 09/01/2018 Abstract SFL CONVERSION [address] [address] , Generic Conversion, Social History Tobacco Use Types Packs/Day Years Used Date Smoking Tobacco: Never Smokeless Tobacco: Never Alcohol Use Standard Drinks/Week Comments No 0 (1 standard drink = 0.6 oz pur e alcohol) AUDIT-C Answer Date Recorded Frequency of Alcohol Consumption Never 06/05/2018 Average Number of Drinks Not on file Frequency of Binge Drinking Not on file 05/25 Comments Unknown Sex and Gender Information Value Date Recorded Sex Assigned at Not on file Legal Sex Female 3:15 AM CDT Gender Identity Not on file Sexual Orientation Not on file documented as of this encounter Functional Status * RETIRED Are you deaf or do you have serious difficulty hearing Answer Date of Assessment Author Status No 06/06/2018 3:00 PM CDT Activ e * RETIRED Are you blind or do you have serious difficulty seeing, even when wearing glasses? Answer Date of Assessment Author Status No 06/06/2018 3:00 PM CDT Activ e * Do you have serious difficulty walking or climbing stairs? Answer Date of Assessment Author Status No 06/06/2018 3:00 PM CDT Padmini Sawant RN Active * Do you have difficulty dressing or bathing? Answer Date of Assessment Author Status No 06/06/2018 3:00 PM Padmini Flores RN Active * Because of a physical, mental, or emotional condition, do you have difficulty doing errands alone such as visiting a doctor's office or shopping? Answer Date of Assessment Author Status No 06/06/2018 3:00 PM Padmini Flores RN Active documented as of this encounter Mental Status * Because of a physical, mental, or emotional condition, do you have serious difficulty concentrating, remembering, or making decisions? Answer Entry Date Author Status No 06/06/2018 3:00 PM Padmini Flores RN Active documented in this encounter Plan of Treatment Not on file documented as of this encounter Visit Diagnoses Not on filedocumented in this encounter Care Teams Foil Stamp Operator Relationship Specialty Start Date End Date Nicki Kasper MD [address] [place] [address] [place] [id number] PCP - General FAMILY PRACTICE 06/05/18 08/25/22 documented as of this encounter
--- OUTSIDE RECORDS SUMMARY | 2024-04-23 09:38 | XMS_ITS ---
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 HYDROcodone-Acetaminophen 5- 325 MG Oral Tablet 04/21/2023 - 05/03/2023 Provider: MARVIN CENTENO 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, lumbar region 1 po daily prn for severe pain Last Documented On 4 9:08AM By MARVIN CENTENO ; [facility] predniSONE 10 MG Oral Tablet 04/20/2023 - 05/03/2023 Provider: MARVIN NICHOLEBC Diagnosis: as directed 3 po daily x 3 d ays, 2 po daily times 3 days, 1 po daily x 3 days and stop Last Documented On 05/03/2023 8:37AM By Maggie MEDRANO ; [facility] Pregabalin 200 MG Oral Capsule 04/11/2023 - 04/11/2023 Provider: MARVIN CENTENO Diagnosis: TAKE ONE CAPSULE BY MOUTH TWICE A DAY Last Documented On 4 2:36PM By MARVIN CENTENO ; [facility] Pregabalin 200 MG Oral Capsule 04/11/2023 - 07/10/2023 Provider: MARVIN CENTENO Diagnosis: TAKE ONE CAPSULE BY MOUTH TWICE A DAY Last Documented On 4 4:39PM By MARVIN CENTENO ; [facility] Pregabalin 200 MG Oral Capsule 03/10/2023 - 04/11/2023 Provider: MARVIN CENTENO Diagnosis: TAKE ONE CAPSULE BY MOUTH TWICE A DAY Last Documented On 4 12:00PM By MARVIN CENTENO ; [facility] Pregabalin 200 MG Oral Capsule 03/09/2023 - 03/10/2023 Provider: MARVIN CENTENO Diagnosis: TAKE ONE CAPSULE BY MOUTH TWICE A DAY Last Documented On 3 10:31AM By MARVIN CENTENO ; [facility] Nortriptyline HCl 25 MG Oral Capsule 02/19/2023 - 05/23/2023 Provider: MARVIN CENTENO Diagnosis: TAKE ONE CAPSULE BY MOUTH DAILY Last Documented On 4 1:03PM By MARVIN CENTENO ; [facility] Celecoxib 200 MG Oral Capsule 02/02/2023 - 05/03/2023 Provider: MARVIN CENTENO 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, lumbar region 1 capsule daily with a meal Last Documented On 4 9:07AM By MARVIN CENTENO ; [facility] Nortriptyline HCl 25 MG Oral Capsule 12/14/2022 - 02/19/2023 Provider: MARVIN CENTENO Diagnosis: 1 capsule daily Last Documented On 3 6:45AM By MARVIN NICHOLEBC ; [facility] Pregabalin 200 MG Oral Capsule 12/07/2022 - 03/09/2023 Provider: MARVIN CENTENO Diagnosis: TAKE ONE CAPSULE BY MOUTH TWICE A DAY Last Documented On 3 3:23PM By MARVIN NICHOLEBC ; [facility] Pregabalin 200 MG Oral Capsule 12/06/2022 - 12/07/2022 Provider: MARVIN CENTENO Diagnosis: TAKE ONE CAPSULE BY MOUTH TWICE A DAY Last Documented On 3 10:19AM By MARVIN CENTENO ; [facility] Pregabalin 200 MG Oral Capsule 10/11/2022 - 12/06/2022 Provider: MARVIN CENTENO Diagnosis: 1 CAPSULE TWO TIMES A DAY Last Documented On 3 3:58PM By MARVIN CENTENO ; [facility] Nortriptyline HCl 25 MG Oral Capsule 10/11/2022 - 02/02/2023 Provider: MARVIN CENTENO Diagnosis: TAKE ONE CAPSULE BY MOUTH DAILY Last Documented On 02/02/2023 8:47AM By Maggie MEDRANO ; [facility] Nortriptyline HCl 25 MG Oral Capsule 10/10/2022 - 11/04/2022 Provider: MARVIN CENTENO 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, lumbar region TAKE ONE CAPSULE BY MOUTH DAILY Last Documented On 11/04/2022 8:35AM By Maggie MEDRANO ; [facility] HYDROcodone-Acetaminophen 5- 325 MG Oral Tablet 09/07/2022 - 04/20/2023 Provider: MARVIN CENTENO 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, lumbar region 1 po daily prn for severe pain Last Documented On 4 10:08AM By MARVIN CENTENO ; [facility] Nortriptyline HCl 25 MG Oral Capsule 09/07/2022 - 10/10/2022 Provider: MARVIN CENTENO 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, lumbar region 1 capsule daily Last Documented On 3 3:59PM By MARVIN CENTENO ; [facility] Celecoxib 200 MG Oral Capsule 09/07/2022 - 02/02/2023 Provider: MARVIN CENTENO 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, lumbar region 1 capsule daily with a meal Last Documented On 3 9:02AM By MARVIN CENTENO ; [facility] Pregabalin 200 MG Oral Capsule 08/09/2022 - 10/11/2022 Provider: MARVIN CENTENO Diagnosis: 1 CAPSULE TWO TIMES A DAY Last Documented On 3 3:47PM By MARVIN CENTENO ; [facility] Pregabalin 200 MG Oral Capsule 07/11/2022 - 08/09/2022 Provider: MARVIN CENTENO Diagnosis: 1 CAPSULE TWO TIMES A DAY Last Documented On 3 10:16AM By MARVIN CENTENO ; [facility] Pregabalin 200 MG Oral Capsule 07/08/2022 - 09/07/2022 Provider: MARVIN CENTENO Diagnosis: Fibromyalgia TAKE ONE CAPSULE BY MOUTH TWICE A DAY Last Documented On 09/07/2022 8:42AM By Maggie MEDRANO ; [facility] HYDROcodone-Acetaminophen 5- 325 MG Oral Tablet 06/02/2022 - 09/07/2022 Provider: MARVIN CENTENO 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, lumbar region 1 po daily prn for severe pain Last Documented On 3 9:22AM By MARVIN CENTENO ; [facility] Celecoxib 200 MG Oral Capsule 04/29/2022 - 09/07/2022 Provider: NAY WILD Diagnosis: Spinal stenosis, lumbar region with neurogenic claudication 1 capsule daily with a meal Last Documented On 3 9:20AM By MARVIN CENTENO ; [facility] Amitriptyline HCl 25 MG Oral Tablet 04/29/2022 - 11/04/2022 Provider: BRENDON WILD-CLARITA Diagnosis: Fibromyalgia One tablet at bed time Last Documented On 11/04/2022 8:35AM By Maggie MEDRANO ; [facility] Pregabalin 200 MG Oral Capsule 04/29/2022 - 07/08/2022 Provider: NAY WILD Diagnosis: Fibromyalgia 1 CAPSULE TWO TIMES A DAY Last Documented On 3 11:58AM By MARVIN CENTENO ; [facility] Pregabalin 200 MG Oral Capsule 04/05/2022 - 04/29/2022 Provider: NAY WILD Diagnosis: Fibromyalgia 1 CAPSULE TWO TIMES A DAY Last Documented On 3 9:41AM By JENNIFER TEE ; [facility] Amitriptyline HCl 25 MG Oral Tablet 02/11/2022 - 04/29/2022 Provider: MARVIN CENTENO Diagnosis: Fibromyalgia One tablet at bed time Last Documented On 3 9:52AM By JENNIFER TEE ; [facility] Celecoxib 200 MG Oral Capsule 01/20/2022 - 04/29/2022 Provider: MARVIN CENTENO Diagnosis: Spinal stenosis, lumbar region with neurogenic claudication 1 capsule daily Last Documented On 3 9:52AM By JENNIFER TEE ; [facility] HYDROcodone-Acetaminophen 5- 325 MG Oral Tablet 01/20/2022 - 06/02/2022 Provider: MARVIN CENTENO 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, lumbar region 1 po daily prn for severe pain Last Documented On 3 9:03AM By MARVIN NICHOLE ; [facility] Pregabalin 200 MG Oral Capsule 01/04/2022 - 04/05/2022 Provider: MARVIN CENTENO Diagnosis: Fibromyalgia 1 CAPSULE TWO TIMES A DAY Last Documented On 3 4:31PM By JENNIFER [facility]ALS [facility]- ; [facility] HYDROcodone-Acetaminophen 5- 325 MG Oral Tablet 12/13/2021 - 01/20/2022 Provider: JENNIFER SEALS VISION TEACHER-FPA, PSYCHIATRY PHYSICIAN- 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, lumbar region 1-2 times per day prn Last Documented On 2 1:45PM By MARVIN CENTENO ; [facility] Celecoxib 200 MG Oral Capsule 10/06/2021 - 01/20/2022 Provider: MARVIN CENTENO Diagnosis: Spinal stenosis, lumbar region with neurogenic claudication 1 capsule daily Last Documented On 2 1:45PM By MARVIN CENTENO ; [facility] HYDROcodone-Acetaminophen 5- 325 MG Oral Tablet 10/05/2021 - 12/10/2021 Provider: MARVIN CENTENO 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, lumbar region 1-2 times per day prn Last Documented On 2 9:26AM By JENNIFER [facility]- ; [facility] Pregabalin 200 MG Oral Capsule 10/05/2021 - 01/04/2022 Provider: MARVIN CENTENO Diagnosis: Fibromyalgia 1 CAPSULE TWO TIMES A DAY Last Documented On 2 8:36AM By MARVIN CENTENO ; [facility] Pregabalin 200 MG Oral Capsule 09/02/2021 - 10/05/2021 Provider: MARVIN CENTENO Diagnosis: 1 CAPSULE TWO TIMES A DAY Last Documented On 2 8:58AM By MARVIN CENTENO ; [facility] Amitriptyline HCl 25 MG Oral Tablet 06/22/2021 - 02/11/2022 Provider: MARVIN CENTENO Diagnosis: Fibromyalgia One tablet at bed time Last Documented On 2 9:03AM By MARVIN CENTENO ; [facility] HYDROcodone-Acetaminophen 5- 325 MG Oral Tablet 06/14/2021 - 10/05/2021 Provider: JENNIFER SEALS VISION TEACHER-FPA, PSYCHIATRY PHYSICIAN-BC Diagnosis: 1-2 times per day prn Last Documented On 2 8:58AM By MARVIN CENTENO ; [facility] Pregabalin 200 MG Oral Capsule 05/31/2021 - 09/02/2021 Provider: MARVIN CENTENO Diagnosis: 1 CAPSULE TWO TIMES A DAY Last Documented On 2 3:41PM By MARVIN CENTENO ; [facility] Celecoxib 200 MG Oral Capsule 05/14/2021 - 10/06/2021 Provider: MARVIN CENTENO Diagnosis: Spinal stenosis, lumbar region with neurogenic claudication 1 capsule daily Last Documented On 2 8:16AM By MARVIN CENTENO ; [facility] Amitriptyline HCl 25 MG Oral Tablet 05/10/2021 - 06/22/2021 Provider: MARVIN CENTENO Diagnosis: Fibromyalgia One tablet at bed time Last Documented On 2 3:44PM By MARVIN CENTENO ; [facility] Savella Titration Pack 12.5 & 25 & 50 MG Oral Miscellaneous 05/07/2021 - 10/05/2021 Provider: MARVIN CENTENO Diagnosis: Fibromyalgia as directed Last Documented On 2 8:44AM By MARVIN CENTENO ; [facility] Savella Titration Pack 12.5 & 25 & 50 MG Oral Miscellaneous 05/07/2021 - 05/07/2021 Provider: MARVIN CENTENO Diagnosis: Chronic pain syndrome as directed Last Documented On 2 8:34AM By MARVIN CENTENO ; [facility] HYDROcodone-Acetaminophen 5- 325 MG Oral Tablet 03/10/2021 - 06/14/2021 Provider: MARVIN CENTENO Diagnosis: 1-2 times per day prn Last Documented On 2 9:43AM By JENNIFER JOEP- ; [facility] Celecoxib 200 MG Oral Capsule 03/10/2021 - 05/14/2021 Provider: MARVIN CENTENO Diagnosis: Spinal stenosis, lumbar region with neurogenic claudication 1 capsule daily Last Documented On 2 7:29AM By MARVIN CENTENO ; [facility] Pregabalin 200 MG Oral Capsule 03/01/2021 - 05/31/2021 Provider: MARVIN CENTENO Diagnosis: 1 CAPSULE TWO TIMES A DAY Last Documented On 2 9:29PM By MARVIN CENTENO ; [facility] HYDROcodone-Acetaminophen 5- 325 MG Oral Tablet 12/07/2020 - 03/10/2021 Provider: MARVIN CENTENO Diagnosis: 1-2 times per day prn Last Documented On 1 5:04PM By MARVIN CENTENO ; [facility] CeleBREX 100 MG Oral Capsule 11/18/2020 - 05/07/2021 Provider: MARVIN CENTENO Diagnosis: Spinal stenosis, lumbar region with neurogenic claudication 1 capsule daily Last Documented On 2 8:28AM By MARVIN CENTENO ; [facility] Pregabalin 200 MG Oral Capsule 11/18/2020 - 02/26/2021 Provider: MARVIN CENTENO Diagnosis: 1 CAPSULE TWO TIMES A DAY Last Documented On 1 1:08PM By MARVIN CENTENO ; [facility] Pregabalin 300 MG Oral Capsule 10/07/2020 - 11/18/2020 Provider: Diagnosis: Last Documented On 11/18/2020 8:31AM By Basilia MEDRANO ; [facility] Atorvastatin Calcium 40 MG Oral Tablet 10/07/2020 - Provider: Diagnosis: Last Documented On 3 8:54AM By MARVIN CENTENO ; [facility] CeleBREX 100 MG Oral Capsule 10/07/2020 - 11/18/2020 Provider: MARVIN CENTENO Diagnosis: Spinal stenosis, lumbar region with neurogenic claudication 1 capsule daily Last Documented On 8:56AM By MARVIN CENTENO ; [facility] HYDROcodone-Acetaminophen 5- 325 MG Oral Tablet 10/07/2020 - 12/07/2020 Provider: MARVIN CENTENO Diagnosis: Spinal stenosis, lumbar region with neurogenic claudication 1 po daily prn Last Documented On 3:50PM By MARVIN CENTENO ; [facility] Pregabalin 200 MG Oral Capsule 10/07/2020 - 11/18/2020 Provider: MARVIN CENTENO Diagnosis: Fibromyalgia 1 CAPSULE TWO TIMES A DAY Last Documented On 8:56AM By MARVIN CENTENO ; [facility] Cephalexin 500 MG Oral Capsule 10/07/2020 - 11/18/2020 Provider: Diagnosis: Last Documented On 11/18/2020 8:31AM By Basilia MEDRANO ; [facility] Cyclobenzaprine HCl 10 MG Oral Tablet 10/07/2020 - 02/2022 Provider: Diagnosis: Last Documented On 10/05/2021 8:34AM By Nasim MEDRANO ; [facility] HYDROcodone-Acetaminophen 5-325 MG Oral Tablet 0 10/07/2020 - 10/07/2020 Provider: Diagnosis: Last Documented On 10:24AM By MARVIN CENTENO ; [facility] Medications Administered Includes: Administered Medications in patient's chart Medications Administered Diagnosis Date Pro vider Kenalog 40 MG/ML IJ SUSP Spinal stenosis , lumbar region with neurogenic claudication 12/22/2020 MARVIN CENTENO Last Documented On 4:49PM By Naism MEDRANO ; [facility] Vital Signs Includes: Vital Signs from 04/23/2023 through 04/23/2024 Vital Name 05/03/2023 08:35A Blood Pressure Sitting L 130/70 Pulse Rate-Sitting (bpm) 80 Temp-Oral (F) 96.8 Height (in) 65 Weight (lb) 204.8 Body Mass Index 34.1 Body Surface Area 2 Pain Level 8 Oxygen Saturation (%) 98 Last Documented: On 05/03/2023 8:39AM ; [facility] Results Includes: Results from 04/23/2023 through 04/23/2024 DRUG MONITORING, PANEL 6 WITH CONFIRMATI ON, URINE [employer] Ordered by MARVIN CENTENO on Collected: 05/03/2023 Reported: 05/04/19 24 23:56 Last Documented On 4 9:18AM ; [facility] Reviewed by MARVIN CENTENO on 05/05/2023; All test results are final unless otherwise noted. Review Note Provider Name Date taken sparingly MARVIN CENTENO 05/05/19 24 Amphetamines NEGATIVE ng/mL (<500) None Last Documented On 4 12:44AM ; [facility] Barbiturates NEGATIVE ng/mL (<300) None Last Documented On 4 12:44AM ; [facility] Benzodiazepines NEGATIVE ng/mL (<100) None Last Documented On 4 12:44AM ; [facility] Marijuana Metabolite NEGATIVE ng/mL (<20) None Last Documented On 4 12:44AM ; [facility] Cocaine Metabolite NEGATIVE ng/mL (<150) None Last Documented On 4 12:44AM ; [facility] Methadone Metabolite NEGATIVE ng/mL (<100) None Last Documented On 4 12:44AM ; [facility] Opiates NEGATIVE ng/mL (<100) None Last Documented On 4 12:44AM ; [facility] medMATCH Opiates INCONSISTENT A (Abnormal) Last Documented On 4 12:44AM ; [facility] Oxycodone NEGATIVE ng/mL (<100) None Last Documented On 4 12:44AM ; [facility] Phencyclidine NEGATIVE ng/mL (<25) None Last Documented On 4 12:44AM ; [facility] Alcohol Metabolites NEGATIVE ng/mL (<500) None Last Documented On 4 12:44AM ; [facility] 6 Acetylmorphine NEGATIVE ng/mL (<10) None Last Documented On 4 12:44AM ; [facility] pH 6.7 (4.5-9.0) None Last Documented On 4 12:44AM ; [facility] Creatinine 91.7 mg/dL (> or = 20.0) None Last Documented On 4 12:44AM ; [facility] Oxidant NEGATIVE mcg/mL (<200) None Last Documented On 4 12:44AM ; [facility] medMATCH Norhydrocodone INCONSISTENT A (Abnormal) Last Documented On 4 12:44AM ; [facility] DRUG MONITORING TEMPLATE [employer] Ordered by MARVIN CENTENO on Collected: 05/03/2023 Reported: 05/04/19 24 23:56 Last Documented On 4 9:18AM ; [facility] Reviewed by MARVIN CENTENO on 05/05/2023; All test results are final unless otherwise noted. Review Note Provider Name Date taken sparingly MARVIN CENTENO 05/05/19 24 Notes and Comments See Note None Last Documented On 05/05/2023 12:44AM ; [facility] Note: This drug testing is for medical treatment only.Analysis was performed as non-forensic testing andthese results should be used only by healthcareproviders to render diagnosis or treatment, or tomonitor progress of medical conditions. LDT Notes:Confirmation tests were developed and their analytical performance characteristics have been determined by [employer]. It has not been cleared or approved by the FDA. This assay has been validated pursuant to the CLIA regulations and is used for clinical purposes. medMATCH(R) enables providers to identify if drug useis consistent or inconsistent with a correspondingprescribed medication(s) list. Healthcare Providers needing Interpretation assistance, please contact us at [phone] ( ) M-F, 8am to 10pm EST PRESCRIBED DRUGS, medMATCH(R) [employer] Ordered by MARVIN CENTENO on Collected: 05/03/2023 Reported: 05/04/19 24 23:56 Last Documented On 4 9:18AM ; [facility] Reviewed by MARVIN CENTENO on 05/05/2023; All test results are final unless otherwise noted. Review Note Provider Name Date taken sparingly MARVIN CENTENO 05/05/19 24 Prescribed Drug 6 Hydrocodone None Last Documented On 4 12:44AM ; [facility] medMATCH Summary See Note None Last Documented On 05/05/2023 12:44AM ; [facility] Note: Prescribed Prescribed Not Prescribed Consistent Inconsistent Inconsistent Hydrocodone Reported Physicians [facility] Ordered by MARVIN CENTENO on Collected: 05/03/2023 Reported: 05/05/19 24 00:59 Last Documented On 4 9:18AM ; [facility] Reviewed by MARVIN CENTENO on 05/05/2023; All test results are final unless otherwise noted. Review Note Provider Name Date taken sparingly MARVIN CENTENO 05/05/19 24 Reported Physicians See Note None Last Documented On 05/05/2023 12:44AM ; [facility] Note: Reported Physicians:Ordering: Marvin Liu History of Present Illness History of Present Illness not supported for this document type No History of Present Illness Recorded Social History Description Last Updated Tobacco non-user 05/03/2023 Last Documented On 4 9:51AM ; [facility] [PHQ-2] Patient Health Questionnaire 2 i tem total score: 15 (Scale: 0-6) 10/07/2020 Last Documented On 1 8:15AM ; [facility] Difficulty walking 10/07/2020 Last Documented On 1 8:15AM ; [facility] Smoking Status Unknown Procedures and Surgical History Includes: Procedures from 04/23/2023 through 04/23/2024 Procedures Code Diagnosis Performing Provider Service Location Service Date CLINIC VISIT [id number] Spondylosis w/o myelopathy or radiculopathy, lumbar region, Spinal stenosis, lumbosacral region, Sacroiliitis, not elsewhere classified, exterminator (current) use of opiate analgesic MARVIN LIU [facility] 05/03/2023 Last Documented On 4 1:31PM ; [facility] Surgical History Last Updated No Pacemaker 02/11/2022 Last Documented On 2 9:55AM ; [facility] Medical History Includes: Medical History in patient's chart Description Last Updated Currently wearing eyeglasses 02/11/2022 Last Documented On 2 9:55AM ; [facility] Deep muscle stimulation 02/11/2022 Last Documented On 2 9:55AM ; [facility] Denies a fear of falling. 02/11/2022 Last Documented On 2 9:55AM ; [facility] Injection/Nerve blocks 02/11/2022 Last Documented On 2 9:55AM ; [facility] Moderate to severe pain 02/11/2022 Last Documented On 2 9:55AM ; [facility] Physical therapy 02/11/2022 Last Documented On 2 9:55AM ; [facility] Please list all illnesses/co nditions you have been diagnosed with: Fibromyalgia Degeneration of back 02/11/2022 Last Documented On 2 9:55AM ; [facility] Treatment with TENS unit 02/11/2022 Last Documented On 2 9:55AM ; [facility] Wearing contact lenses 02/11/2022 Last Documented On 2 9:55AM ; [facility] Family History Includes: Family History in patient's chart Description Last Updated Family history of Arthritis 02/11/2022 Last Documented On 2 9:55AM ; [facility] Family history of ischemic heart disease 02/11/2022 Last Documented On 2 9:55AM ; [facility] Family history of kidney disease 022 Last Documented On 2 9:55AM ; [facility] Maternal history of Arthritis 02/11/2022 Last Documented On 2 9:55AM ; [facility] Maternal history of reported family hist ory of seizures 02/11/2022 Last Documented On 2 9:55AM ; [facility] Sororal history of stroke/paralysis 01/25 Last Documented On 2 9:55AM ; [facility] Review of Systems Review of Systems not supported for this document type No Review of Systems Recorded Mental Status No Mental Status Recorded Functional Status No Functional Status Recorded Physical Exam Physical Exam not supported for this document type No Physical Exam Recorded Allergies Includes: Active, inactive, and resolved Allergies Substance Type Reaction Onset Date Resolved Date Statu s Sulfa Antibiotics Allergy 10/07/2020 A ctive Last Documented On 4 8:38AM ; [facility] Encounters Includes: Encounters from 04/23/2023 through 04/23/2024 Encounter Provider Location Date Check-In Time Check-Out Time Diagnosis PAIN MANAGEMENT FOLLOW UP MARVIN CENTENO [facility] 05/03/19 24 8:32AM 9:14AM Chronic Pain Syndrome,Sacroil iitis,Fibromyalg ia,Spondylosis Without Myelopathy Or Radiculopathy Lumbar Region,Spinal Stenosis Lumbosacral,Light Coil Winder Use of Opiate Analgesic Insurance Includes: Active Insurance Policies Plan Name Member ID Group # Subscriber Relationship Effect mya Dates 1 - MEDICAID [place] [facility] [id number] SHIRA MERAZ Self Clinical Notes Includes: Signed Clinical Notes starting from 04/15/2022 * Progress note Date Encounter Last Documented by 05/03/2023 PAIN MANAGEMENT FOLLOW UP Last d ocumented on 05/03/2023; 9:51 AM, MARVIN CENTENO; [facility] Chief Complaint The Chief Complaint is: 3 MO FU. History of Present Illness - Allergy list reviewed - Problem list reviewed - Medication reconciliation performed - Medication list reviewed - Prescription Drug Monitoring Program website checked. 04/21/23 - How much of the medication are you taking a day? PRN - Last dose of medication? 2-3 DAYS AGO - Last drug screen appropriate 09/07/22 RAPID Discussion: Patient returns in follow-up for medication. She suffers from chronic low back pain as well as symptoms related to fibromyalgia. She reports increase in fibromyalgia symptoms the last 4-6 weeks as well as increased low back pain traveling into the left buttock and posterior thigh. She had a fall around [place] and the right shoulder has been aggravated since. Her PCP ordered an x-ray and physical therapy. I encouraged her to get therapy started for optimal symptom relief. She uses hydrocodone half tablet once daily as needed. She tries not to use this on a daily basis, but admits she has needed it more as of late. She was given a steroid dose pack to-3 weeks ago, which provided only mild benefit. Record review shows a lapse in Celebrex. She is unsure when this was last taken, but records show she has likely been out of this medication for 2 months. This may be a part of the reason her pain has increased. She questions increasing pregabalin. I would recommend restarting Celebrex 1st. She may also benefit from an increase in duloxetine. She currently takes 40 mg daily. This is prescribed by her PCP. She plans to speak with them about increasing this medication. We can consider an increase of pregabalin if these 2 changes do not help significantly. We can also consider injections in the lumbar spine or SI joints. She is somewhat hesitant to do injections as they are painful for her. She continues home exercises as tolerated. Past note (02/02/23): Patient returns in follow-up for medication. She [...] levels. She continues home exercises as tolerated. [place] prescription monitoring site appropriate. Past visit 09/07/22: [...] L5 on S1 Test Conclusions PHQ-9 Score: 4 Date: 05/03/23 BPI Score: Date: MiDAS Score: Date: SOAPP-R Score: 6 LOW Date: 05/03/23 AUBRIE Score:17=34% Date:05/03/23 Past Medical/Surgical History Reported: Injection/Nerve blocks, Deep [...] tablet daily 0 days, 0 refills - Levothyroxine Sodium 88 MCG Oral Tablet One tablet daily 30 days, 0 refills - Montelukast Sodium 10 MG Oral Tablet One tablet daily 30 days, 0 refills - Nortriptyline HCl 25 MG Oral Capsule TAKE ONE CAPSULE BY MOUTH DAILY, 30 days, 2 refills - Omeprazole 40 [...] Dry skin. Physical Findings - Vitals taken 05/03/2023 08:35 am BP-Sitting L 130/70 mmHg Pulse Rate-Sitting 80 bpm Temp-Oral 96.8 F Height 65 in Weight 204 lbs 12.8 oz Body Mass Index 34.1 kg/m2 Body Surface Area 2 m2 Pain Level 8 Pain Level Note EVERYWHERE Oxygen Saturation 98 % Musculoskeletal System: General/bilateral: Musculoskeletal Scales: Value Lumbar oswestry score 34 Psychiatric: Psychiatric: Value PHQ9 score: 4 Constitutional: Well developed. Well nourished, obese. In no acute distress. HEENT: NC/AT. Anicteric. Clear Conjunctiva. PERRLA. M CVS: . No peripheral edema. Peripheral pulses palpable in all extremities. Spine/MSK: Tenderness bilateral lower level lumbar facet joints. SI tenderness. Mild tenderness lumbar paraspinals and trigger points throughout. Gait: Not antalgic. Neuro: Awake. Alert. Oriented x3. Psych: No apparent distress. Mood normal. Affect normal. No pain behaviors. Skin: No rash. Normal pigmentation. Normal temperature Tests Educational Testing: Questionnaires PHQ-9: Value SOAPP-R: total score 6 Assessment - Sacroiliitis [M46.1 - Sacroiliitis, not elsewhere classified] - Lumbar spondylosis without myelopathy or radiculopathy [M47.816 - Spondylosis without myelopathy or radiculopathy, lumbar region] - Lumbosacral spinal stenosis [M48.07 - Spinal stenosis, lumbosacral region] - Fibromyalgia [M79.7 - Fibromyalgia] - Chronic pain syndrome [G89.4 - Chronic pain syndrome] - nursing home use of opiate analgesic [Z79.891 - nursing home (current) use of opiate analgesic] Therapy - Assessment of suicide risk performed Counseling/Education - Pill Count: one HYDROCODONE - Pill Count: Patient did not [...] medication properly and to never share medication. Recommend she move forward with plan for physical therapy on the right shoulder. Patient is to restart Celebrex and take consistently for optimal symptom control. She will speak with her PCP about an increase in duloxetine to 60 mg daily. 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 Urine drug testing is ordered to monitor opioid use and ongoing candidacy; verify compliant use of controlled substances and monitor for use of illicit substances as these may result in harmful interactions. Practice Management Use of tobacco assessment performed Review of medications documented; Standardized depression screening: positive for symptoms and for adult impression and score four. Results of this interaction were communicated directly [...] but may be subject to typographical or surgical instrument technician errors. Verify all diagnoses, medications, dosages, and patient instructions with patient and/or the originator of this document. Care Team - CRISTHIAN WELSH- - Pain Management Health Reminders - Assess BMI satisfied 05/03/2023. - Assess Need for CT Lung Screen satisfied 05/03/2023. - Assess Tobacco Use satisfied 05/03/2023. - Depression Screening satisfied 05/03/2023. - Follow up plan for Depression Screening satisfied 05/03/2023.
--- OUTSIDE RECORDS SUMMARY | 2024-04-23 09:39 | XMS_ITS | Clinical Summary ---
Author Organization [facility] Address [address] [place] [address] Phone Care Team Providers Care Environmental Health And Safety Leader Name Role Phone KALIA CENTENO, MARVIN L Unavailable [phone] JUAN JOSE AMIN DO Primary Care Provider [phone] Reason for Visit and Chief Complaint * PHONE CALL Plan of Treatment No Plan of Treatment Recorded Assessments Includes: Assessments from this encounter No Assessments Recorded Medical Equipment - Implanted Devices Includes: Current Devices No Medical Equipment Recorded Medications Includes: Medications discussed during this encounter and other current Medications Discontinued / Stopped on this date MARVIN CENTENO on 09/07/2022 HYDROcodone-Acetaminophen 5- 325 MG Oral Tablet Provider: MARVIN CENTENO 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, lumbar region Last Documented On 10:08AM By MARVIN CENTENO ; [facility] New / Renewed during this visit MARVIN CENTENO on 04/20/2023 predniSONE 10 MG Oral Tablet Provider: MARVIN PINZON 9 day supply: 18 tablet, 0 refills Diagnosis: as directed 3 po daily x 3 d ays, 2 po daily times 3 days, 1 po daily x 3 days and stop Pharmacy: [facility] [address], [phone] - Last Documented On 05/03/2023 8:37AM By Maggie MEDRANO ; [facility] Current Medications (continue as prescribed) Pregabalin 200 MG Oral Capsule 07/10/2023 Provider: MARVIN CENTENO Diagnosis: TAKE ONE CAPSULE BY MOUTH TWICE A DAY Last Documented On 4 4:42PM By MARVIN NICHOLE ; [facility] Nortriptyline HCl 25 MG Oral Capsule 05/23/2023 Prov ider: MARVIN CENTENO Diagnosis: TAKE ONE CAPSULE BY MOUTH DAILY Last Documented On 4 1:12PM By MARVIN NICHOLE ; [facility] HYDROcodone-Acetaminophen 5- 325 MG Oral Tablet 05/03/2023 Provider: MARVIN NICHOLE 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, lumbar region 1/2 to 1 po daily prn Last Documented On 4 9:17AM By MARVIN NICHOLE ; [facility] Celecoxib 200 MG Oral Capsule 05/03/2023 Provider: MARVIN NICHOLE 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, lumbar region 1 capsule daily with a meal Last Documented On 4 9:17AM By MARVIN NICHOLE ; [facility] Levothyroxine Sodium 88 MCG Oral Tablet 02/01/2023 Jagjit mander: Diagnosis: Last Documented On 02/02/2023 8:48AM By Maggie MEDRANO ; [facility] Montelukast Sodium 10 MG Oral Tablet 01/11/2023 Prov ider: JUAN JOSE AMIN DO Diagnosis: Last Documented On 02/02/2023 8:48AM By Maggie MEDRANO ; [facility] DULoxetine HCl 20 MG Oral Ca psule Delayed Release Particles 11/29/2022 Provider: TOMMY WATERS MD Diagnosis: Last Documented On 02/02/2023 8:48AM By Maggie MEDRANO ; [facility] Albuterol Sulfate HFA 108 (9 0 Base) MCG/ACT Inhalation Aerosol Solution 10/07/2020 Provider: Diagnosis: Last Documented On 3 9:52AM By JENNIFER [facility] ; [facility] Omeprazole 40 MG Oral Capsule Delayed Release 10/08/19 21 Provider: Diagnosis: Last Documented On 3 9:52AM By JENNIFER TEE ; [facility] Euthyrox 112 MCG Oral Tablet 10/07/2020 Provider: Diagnosis: Last Documented On 3 9:52AM By JENNIFER TEE ; [facility] Medications Administered Includes: Administered Medications from this encounter No Administered Medications Recorded Results Includes: Results discussed during this encounter No Results Recorded For Specified Dates History of Present Illness Includes: History of Present Illness from this encounter HPI Pharmacy name:~location:[facility]. Social History Description Last Updated Tobacco non-user 05/03/2023 Last Documented On 4 1:13PM ; [facility] [PHQ-2] Patient Health Questionnaire 2 i tem total score: 15 (Scale: 0-6) 10/07/2020 Last Documented On 4 1:13PM ; [facility] Difficulty walking 10/07/2020 Last Documented On 4 1:13PM ; [facility] Smoking Status Unknown Medical History Includes: Medical History addressed during this encounter Description Last Updated Currently wearing eyeglasses 02/11/2022 Last Documented On 4 1:13PM ; [facility] Deep muscle stimulation 02/11/2022 Last Documented On 4 1:13PM ; [facility] Injection/Nerve blocks 02/11/2022 Last Documented On 4 1:13PM ; [facility] Moderate to severe pain 02/11/2022 Last Documented On 4 1:13PM ; [facility] Physical therapy 02/11/2022 Last Documented On 4 1:13PM ; [facility] Please list all illnesses/co nditions you have been diagnosed with: Fibromyalgia Degeneration of back 02/11/2022 Last Documented On 4 1:13PM ; [facility] Treatment with TENS unit 02/11/2022 Last Documented On 4 1:13PM ; [facility] Wearing contact lenses 02/11/2022 Last Documented On 4 1:13PM ; [facility] Family History Includes: Family History addressed during this encounter No Family History Recorded Review of Systems Includes: Review of Systems from this encounter No Review of Systems Recorded Mental Status Includes: Mental Status from this encounter No Mental Status Recorded Functional Status Includes: Functional Status from this encounter No Functional Status Recorded Physical Exam Includes: Physical Exam from this encounter No Physical Exam Recorded Allergies Includes: Active Allergies Substance Type Reaction Onset Date Resolved Date Statu s Sulfa Antibiotics Allergy 10/07/2020 A ctive Last Documented On 4 8:38AM ; [facility] Encounters Encounter Provider Location Date Check-In Time Check-Out Time Diagnosis * PHONE CALL MARVIN CENTENO 04/20/2023 1:13PM 11:59PM Insurance Includes: Active Insurance Policies Plan Name Member ID Group # Subscriber Relationship Effect mya Dates 1 - MEDICAID [facility] [id number] SHIRA MERAZ Self Clinical Notes Includes: Clinical Notes from this encounter * Progress note Date Encounter Last Documented by 04/20/2023 * PHONE CALL Last documented on 04/21/2023; 10:08 AM, MARVIN CENTENO; [facility] Chief Complaint Phone Call - Chief Concern: reason for call:pt c/o increased pain in whole body, low back, both shoulders, has been taking ibuprofen and lots of tylenol, is not helping, pt is requesting increase in pregabalin and Rx of hydrocodone since i haven't had any in a long time , states she can't wait until f/u on 05/03/23 pt phone # for return call:[phone] date/initials:04/20/23, [place]. History of Present Illness Pharmacy name:~location:[facility] in [place]. Past Medical/Surgical History Reported: Injection/Nerve blocks, Deep [...] 15 (Scale: 0-6). Allergies - Sulfa Antibiotics Plan StartCited - Other PHY ORDER/COMMENT why don't we try a burst of steroids and see if it helps. predniSONE 10 MG tablet as directed 3 po daily x 3 days, 2 po daily times 3 days, 1 po daily x 3 days and stop, 9 days, 0 refills EndCited StartCited - Spondylosis w/o myelopathy or radiculopathy, lumbar region HYDROcodone-Acetaminophen 5-325 MG tablet 1 po daily prn for severe pain, 7 days, 0 refills EndCited Care Team - CRISTHIAN WELSH- - Pain Management Health Reminders - Assess Need for CT Lung Screen satisfied 04/20/2023. - Assess Tobacco Use satisfied 04/20/2023.
--- OUTSIDE RECORDS SUMMARY | 2024-04-23 09:39 | XMS_ITS | Clinical Summary ---
Author Organization [facility] Address [address] [place] [address] Phone Care Team Providers Care Enforcement Officer Name Role Phone KALIA MORROW-CLARITAMARVIN Unavailable [phone] JUAN JOSE AMIN DO Primary Care Provider [phone] Reason for Visit and Chief Complaint The Chief Complaint is: 6 WEEK FU Plan of Treatment Education and Decision Aids were provided during visit for: Pill Count: five HYDROCODONE Last Documented On 8:37AM ; [facility] Assessments Includes: Assessments from this encounter Findings - Sacroiliitis [M46.1 - Sacroiliitis, not elsewhere classified] - Last Documented On 11/16/2022 10:36AM ; [facility] - Right trochanteric bursitis [M70.61 - Trochanteric bursitis, right hip] - Last Documented On 11/16/2022 10:36AM ; [facility] - Left trochanteric bursitis [M70.62 - Trochanteric bursitis, left hip] - Last Documented On 11/16/2022 10:36AM ; [facility] - Lumbar spondylosis without myelopathy or radiculopathy [M47.816 - Spondylosis without myelopathy or radiculopathy, lumbar region] - Last Documented On 11/16/2022 10:36AM ; [facility] - Lumbosacral spinal stenosis [M48.07 - Spinal stenosis, lumbosacral region] - Last Documented On 11/16/2022 10:36AM ; [facility] - Fibromyalgia [M79.7 - Fibromyalgia] - Last Documented On 11/16/2022 10:36AM ; [facility] - Chronic pain syndrome [G89.4 - Chronic pain syndrome] - Last Documented On 11/16/2022 10:36AM ; [facility] - 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] - Last Documented On 11/16/2022 10:36AM ; [facility] Instructions Includes: Instructions from this encounter Education and Decision Aids were provided during visit for: Pill Count: five HYDROCODONE Last Documented On 3 8:37AM ; [facility] Medical Equipment - Implanted Devices Includes: Current Devices No Medical Equipment Recorded Medications Includes: Medications discussed during this encounter and other current Medications Discontinued / Stopped on this date MARVIN CENTENO on 10/10/2022 Nortriptyline HCl 25 MG Oral Capsule Provider: MARVIN CENTENO 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, lumbar region Last Documented On 11/04/2022 8:35AM By Maggie MEDRANO ; [facility] Amitriptyline HCl 25 MG Oral Tablet Provider: CHRISSY AHUJABC Diagnosis: Fibromyalgia Last Documented On 11/04/2022 8:35AM By Maggie MEDRANO ; [facility] Current Medications (continue as prescribed) Pregabalin 200 MG Oral Capsule 07/10/2023 Provider: MARVIN CENTENO Diagnosis: TAKE ONE CAPSULE BY MOUTH TWICE A DAY Last Documented On 4 4:42PM By MARVIN CENTENO ; [facility] Nortriptyline HCl 25 MG Oral Capsule 05/23/2023 Prov ider: MARVIN CENTENO Diagnosis: TAKE ONE CAPSULE BY MOUTH DAILY Last Documented On 4 1:12PM By MARVIN CENTENO ; [facility] HYDROcodone-Acetaminophen 5- 325 MG Oral Tablet 05/03/2023 Provider: MARVIN CENTENO 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, lumbar region 1/2 to 1 po daily prn Last Documented On 4 9:17AM By MARVIN CENTENO ; [facility] Celecoxib 200 MG Oral Capsule 05/03/2023 Provider: MARVIN CENTENO 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, lumbar region 1 capsule daily with a meal Last Documented On 4 9:17AM [facility] Levothyroxine Sodium 88 MCG Oral Tablet 02/01/2023 Jagjit mander: Diagnosis: Last Documented On 02/02/2023 8:48AM By Maggie MEDRANO ; [facility] Montelukast Sodium 10 MG Oral Tablet 01/11/2023 Prov ider: JUAN JOSE AMIN DO Diagnosis: Last Documented On 02/02/2023 8:48AM By Maggie MEDRANO ; [facility] DULoxetine HCl 20 MG Oral Ca psule Delayed Release Particles 11/29/2022 Provider: TOMMY WATERS MD Diagnosis: Last Documented On 02/02/2023 8:48AM By Maggie MEDRANO ; [facility] Albuterol Sulfate HFA 108 (9 0 Base) MCG/ACT Inhalation Aerosol Solution 10/07/2020 Provider: Diagnosis: Last Documented On 3 9:52AM By JENNIFER OLIVASCLARITA ; [facility] Omeprazole 40 MG Oral Capsule Delayed Release 10/08/19 Provider: Diagnosis: Last Documented On 3 9:52AM By JENNIFER TEE ; [facility] Euthyrox 112 MCG Oral Tablet 10/07/2020 Provider: Diagnosis: Last Documented On 3 9:52AM By JENNIFER TEE ; [facility] Medications Administered Includes: Administered Medications from this encounter No Administered Medications Recorded Vital Signs Includes: Vital Signs from this encounter Vital Name 11/04/2022 08:31A Blood Pressure Sitting L 114/78 Pulse Rate-Sitting (bpm) 88 Temp-Temporal 96.7 Height (in) 65 Weight (lb) 208 Body Mass Index 34.6 Body Surface Area 2 Pain Level 4 Oxygen Saturation (%) 98 Last Documented: On 11/04/2022 8:34AM ; [facility] Results Includes: Results discussed during this encounter [...] Last drug screen appropriate 09/07/22 Discussion: Patient presents in follow-up for chronic pain. [...] levels. She continues home exercises as tolerated. [place] prescription monitoring site appropriate. Past visit 09/07/22: [...] Tobacco non-user 05/03/2023 Last Documented On 3 8:31AM ; [facility] [PHQ-2] Patient Health Questionnaire 2 i tem total score: 15 (Scale: 0-6) 10/07/2020 Last Documented On 3 8:31AM ; [facility] Difficulty walking 10/07/2020 Last Documented On 3 8:31AM ; [facility] Smoking Status Unknown Procedures and Surgical History Includes: Procedures from this encounter Procedures Code Diagnosis Performing Provider Service L ocation Service Date use of tobacco assessment performed 1000F Last Documented On 3 8:37AM ; [facility] standardized depression screening: negative for symptoms 3351F Last Documented On 3 8:31AM ; [facility] review of medications documented 1160F Last Documented On 3 8:37AM ; [facility] assessment of suicide risk performed Last Documented On 3 8:31AM ; [facility] screening for adult depression: impressi on and score 0 Last Documented On 3 8:31AM ; [facility] SOAPP-R: total score 4 Last Documented On 3 8:31AM ; [facility] Medical History Includes: Medical History addressed during this encounter Description Last Updated Currently wearing eyeglasses 02/11/2022 Last Documented On 3 8:31AM ; [facility] Deep muscle stimulation 02/11/2022 Last Documented On 3 8:31AM ; [facility] Injection/Nerve blocks 02/11/2022 Last Documented On 3 8:31AM ; [facility] Moderate to severe pain 02/11/2022 Last Documented On 3 8:31AM ; [facility] Physical therapy 02/11/2022 Last Documented On 3 8:31AM ; [facility] Please list all illnesses/co nditions you have been diagnosed with: Fibromyalgia Degeneration of back 02/11/2022 Last Documented On 3 8:31AM ; [facility] Treatment with TENS unit 02/11/2022 Last Documented On 3 8:31AM ; [facility] Wearing contact lenses 02/11/2022 Last Documented On 3 8:31AM ; [facility] Family History Includes: Family History addressed during this encounter Description Last Updated Family history of Arthritis 02/11/2022 Last Documented On 3 8:31AM ; [facility] Family history of ischemic heart disease 02/11/2022 Last Documented On 3 8:31AM ; [facility] Family history of kidney disease 022 Last Documented On 3 8:31AM ; [facility] Maternal history of Arthritis 02/11/2022 Last Documented On 3 8:31AM ; [facility] Maternal history of reported family hist ory of seizures 02/11/2022 Last Documented On 3 8:31AM ; [facility] Sororal history of stroke/paralysis 01/25 Last Documented On 3 8:31AM ; [facility] Review of Systems Includes: Review of Systems [...] ctive Last Documented On 4 8:38AM ; [facility] Encounters Encounter Provider Location Date Check-In Time Check-Out Time Diagnosis PAIN MANAGEMENT FOLLOW UP MARVIN CENTENO [facility] 11/05/19 23 8:31AM 9:19AM Chronic Pain Syndrome,Sacroil iitis,Fibromyalg ia,Spondylosis Without Myelopathy Or Radiculopathy Lumbar Region,Spinal Stenosis Lumbosacral,Burs itis Trochanteric Right,Bursitis Trochanteric Left,Human Resources Benefits Assistant Use of Opiate Analgesic Insurance Includes: Active Insurance Policies Plan Name Member ID Group # Subscriber Relationship Effect mya Dates 1 - MEDICAID [place] [employer] [facility] [id number] SHIRA MERAZ Self Clinical Notes Includes: Clinical Notes from this encounter * Progress note Date Encounter Last Documented by 11/04/2022 PAIN MANAGEMENT FOLLOW UP Last d ocumented on 11/16/2022; 10:36 AM, MARVIN CENTENO; [facility] Chief Complaint The Chief Complaint is: 6 WEEK FU. History of Present Illness - Allergy list reviewed - Problem list reviewed - Medication reconciliation performed - Medication list reviewed - Prescription Drug Monitoring Program website checked. 09/07/22 - How much of the medication are you taking a day? PRN - Last dose of medication? MONDAY - Last drug screen appropriate 09/07/22 Discussion: Patient presents in follow-up for chronic pain. [...] levels. She continues home exercises as tolerated. [place] prescription monitoring site appropriate. Past visit 09/07/22: [...] a meal, 90 days, 0 refills - Euthyrox 112 MCG Oral Tablet One tablet daily 0 days, 0 refills - HYDROcodone-Acetaminophen 5-325 MG Oral Tablet 1 po daily prn for severe pain, 15 days, 0 refills - Nortriptyline HCl 25 MG Oral Capsule TAKE ONE CAPSULE BY MOUTH DAILY, 30 days, 0 refills - Omeprazole 40 MG Oral Capsule Delayed Release 1 capsule daily 0 days, 0 refills - Pregabalin 200 MG Oral Capsule 1 CAPSULE TWO TIMES A DAY, 30 days, 1 refills Social History Difficulty walking. Tobacco use: [...] Dry skin. 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 Continue pregablin, celebrex and home exercises F/U 3 months Practice Management Use of tobacco assessment performed [...] but may be subject to typographical or author errors. Verify all diagnoses, medications, dosages, and patient instructions with patient and/or the originator of this document. Care Team - CRISTHIAN WELSH- - Pain Management Health Reminders - Assess BMI satisfied 11/04/2022. - Assess Need for CT Lung Screen satisfied 11/04/2022. - Assess Tobacco Use satisfied 11/04/2022. - Depression Screening satisfied 11/04/2022. - Follow up plan for Depression Screening satisfied 11/04/2022.
--- OUTSIDE RECORDS SUMMARY | 2024-04-23 09:39 | XMS_ITS | Clinical Summary ---
Author Organization [facility] Address [address] [place] [address] Phone Care Team Providers Care Electronic Engraver Name Role Phone KALIA CENTENO MARVIN Lovelace Unavailable [phone] JUAN JOSE AMIN DO Primary Care Provider [phone] Reason for Visit and Chief Complaint RX ISSUE/REFILL Plan of Treatment No Plan of Treatment Recorded Assessments Includes: Assessments from this encounter No Assessments Recorded Medical Equipment - Implanted Devices Includes: Current Devices No Medical Equipment Recorded Medications Includes: Medications discussed during this encounter and other current Medications Discontinued / Stopped on this date MARVIN CENTENO on 07/08/2022 Pregabalin 200 MG Oral Capsule Provider: MARVIN CENTENO Diagnosis: Fibromyalgia Last Documented On 09/07/2022 8:42AM By Maggie MEDRANO ; [facility] HYDROcodone-Acetaminophen 5- 325 MG Oral Tablet Provider: MARVIN CENTENO 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, lumbar region Last Documented On 3 9:22AM By MARVIN CENTENO ; [facility] Current Medications (continue as prescribed) Pregabalin 200 MG Oral Capsule 07/10/2023 Provider: MARVIN CENTENO Diagnosis: TAKE ONE CAPSULE BY MOUTH TWICE A DAY Last Documented On 4 4:42PM By MARVIN CENTENO ; [facility] Nortriptyline HCl 25 MG Oral Capsule 05/23/2023 Prov ider: MARVIN CENTENO Diagnosis: TAKE ONE CAPSULE BY MOUTH DAILY Last Documented On 4 1:12PM By MARVIN CENTENO ; [facility] HYDROcodone-Acetaminophen 5- 325 MG Oral Tablet 05/03/2023 Provider: MARVIN CENTENO 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, lumbar region 1/2 to 1 po daily prn Last Documented On 4 9:17AM By MARVIN NICHOLE ; [facility] Celecoxib 200 MG Oral Capsule 05/03/2023 Provider: MARVIN CENTENO 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, lumbar region 1 capsule daily with a meal Last Documented On 4 9:17AM By MARVIN NICHOLE ; [facility] Levothyroxine Sodium 88 MCG Oral Tablet 02/01/2023 P magdader: Diagnosis: Last Documented On 02/02/2023 8:48AM By Maggie MEDRANO ; [facility] Montelukast Sodium 10 MG Oral Tablet 01/11/2023 Prov ider: JUAN JOSE AMIN DO Diagnosis: Last Documented On 02/02/2023 8:48AM By Maggie MEDRANO ; [facility] DULoxetine HCl 20 MG Oral Ca psule Delayed Release Particles 11/29/2022 Provider: TOMMY WATERS MD Diagnosis: Last Documented On 02/02/2023 8:48AM By Maggie MEDRANO ; [facility] Albuterol Sulfate HFA 108 (9 0 Base) MCG/ACT Inhalation Aerosol Solution 10/07/2020 Provider: Diagnosis: Last Documented On 3 9:52AM By JENNIFER TEE ; [facility] Omeprazole 40 MG Oral Capsule Delayed Release 10/08/19 21 Provider: Diagnosis: Last Documented On 3 9:52AM By JENNIFER TEE ; [facility] Euthyrox 112 MCG Oral Tablet 10/07/2020 Provider: Diagnosis: Last Documented On 3 9:52AM By JENNIFER TEE ; [facility] Medications Administered Includes: Administered Medications from this encounter No Administered Medications Recorded Results Includes: Results discussed during this encounter No Results Recorded For Specified Dates History of Present Illness Includes: History of Present Illness from this encounter HPI Pharmacy name:~location:[facility]. Social History Description Last Updated Tobacco non-user 05/03/2023 Last Documented On 3 4:48PM ; [facility] [PHQ-2] Patient Health Questionnaire 2 i tem total score: 15 (Scale: 0-6) 10/07/2020 Last Documented On 3 4:48PM ; [facility] Difficulty walking 10/07/2020 Last Documented On 3 4:48PM ; [facility] Smoking Status Unknown Medical History Includes: Medical History addressed during this encounter No Medical History Recorded Family History Includes: Family History addressed during [...] ctive Last Documented On 4 8:38AM ; [facility] Encounters Encounter Provider Location Date Check-In Time Check-Out Time Diagnosis RX ISSUE/REFILL MARVIN CENTENO 09/07/2022 4:48PM 11:59PM Insurance Includes: Active Insurance Policies Plan Name Member ID Group # Subscriber Relationship Effect mya Dates 1 - [employer] [place] [employer] [id number] SHIRA MERAZ Self Clinical Notes Includes: Clinical Notes from this encounter * Progress note Date Encounter Last Documented by 09/07/2022 RX ISSUE/REFILL Last documented on 09/08/2022; 4:04 PM, MARVIN CENTENO; [facility] Chief Complaint Phone Call - Chief Concern: reason for call: FYI PER [facility] FAX IT STATES THAT PLAN LIMITATIONS EXCEEDED. THEY WERE ONLY ABLE TO GIVE HER A 5 DAY SUPPLY pt phone # for return call: date/initials:09-07-22 [facility]. History of Present Illness Pharmacy name:~location:[facility]. Current Medication - Albuterol Sulfate HFA 108 (90 Base) MCG/ACT Inhalation Aerosol Solution as directed 0 days, 0 refills - Amitriptyline HCl 25 MG Oral Tablet One tablet at bed time, 90 days, 0 refills - Celecoxib 200 MG Oral Capsule 1 capsule daily with a meal, 90 days, 0 refills - Celecoxib 200 MG Oral Capsule 1 capsule daily with a meal, 90 days, 0 refills - Euthyrox 112 MCG Oral Tablet One tablet daily 0 days, 0 refills - HYDROcodone-Acetaminophen 5-325 MG Oral Tablet 1 po daily prn for severe pain, 15 days, 0 refills - Nortriptyline HCl 25 MG Oral Capsule 1 capsule daily, 30 days, 0 refills - Omeprazole 40 MG Oral Capsule Delayed Release 1 capsule daily 0 days, 0 refills - Pregabalin 200 MG Oral Capsule 1 CAPSULE TWO TIMES A DAY, 30 days, 1 refills Social History Difficulty walking. Tobacco use: Tobacco non-user. Functional: [PHQ-2] Patient Health Questionnaire 2 item total score: 15 (Scale: 0-6). Allergies - Sulfa Antibiotics Care Team - CRISTHIAN WELSH- - Pain Management Health Reminders - Assess Need for CT Lung Screen satisfied 09/07/2022. - Assess Tobacco Use satisfied 09/07/2022.
--- OUTSIDE RECORDS SUMMARY | 2024-04-23 09:39 | XMS_ITS | Clinical Summary ---
Author Organization [facility] Address [facility]. [place], [place] [id number] [place] [id number] Care Team Providers Care Oil Field Technician Name Role Phone Unavailable Primary Care Provider Unavailabl e Allergies Active Allergy Reactions Criticality Noted Date Comments Sulfa Antibiotics Other (see comment) High 3 Airway swollen Medications albuterol sulfate HFA (PROAIR HFA) 108 (90 Base) MCG/ACT inhaler Inhale 2 puffs into the lungs as needed. Active gabapentin 100 MG capsule Take 200 mg by mouth 3 (three) times daily. Active HYDROcodone-acet aminophen 5-325 MG tablet Take 1 tablet by mouth every 6 (six) hours as needed for Pain. Active omeprazole 40 MG capsule Take 40 mg by mouth daily. Active oxymetazoline 0.05 % nasal spray 2 sprays by Nasal route 2 (two) times daily. Active Active Problems Problem Noted Date Diagnosed Date Received intravenous tissue plasminogen activator (tPA) in emergency department 09/20/2019 Stroke-like symptoms 09/19/2019 Acute ischemic stroke ([facility]) 09/19/19 20 Degeneration of lumbar intervertebral disc 03/06 Unstable angina ([facility]) 06/05/2018 Essential hypertension 06/05/2018 Family history of premature CAD 06/05/2018 Acquired hypothyroidism 06/05/2018 Fibromyalgia 06/05/2018 History of transient ischemic attack (TIA) 06/05 GERD (gastroesophageal reflux disease) 9 Family History Medical History Relation Comments Heart Attack Brother S/P CABG Prostate Cancer Father Breast Cancer Maternal Aunt No Known Problems Maternal Grandfather No Known Problems Maternal Grandmother No Known Problems Maternal Uncle DVT Mother Ovarian Cancer Mother No Known Problems Paternal Aunt No Known Problems Paternal Grandfather No Known Problems Paternal Grandmother No Known Problems Paternal Uncle No Known Problems Sister Relation Status Comments Brother Father Maternal Aunt Maternal Grandfather Maternal Grandmother Maternal Uncle Mother Paternal Aunt Paternal Grandfather Paternal Grandmother Paternal Uncle Sister Social History Tobacco Use Types Packs/Day Years Used Date Smoking Tobacco: Never Smokeless Tobacco: Never Alcohol Use Standard Drinks/Week Comments No 0 (1 standard drink = 0.6 oz pur e alcohol) AUDIT-C Answer Date Recorded Frequency of Alcohol Consumption Never 06/05/2018 Average Number of Drinks Not on file 019 Frequency of Binge Drinking Not on file 05/25 Comments No Sex and Gender Information Value Date Recorded Sex Assigned at Not on file Legal Sex Female 3:15 AM CDT Gender Identity Not on file Sexual Orientation Not on file Last Filed Vital Signs Vital Sign Reading Time Taken Comments Blood Pressure 124/70 10/29/2019 1:49 PM CDT Pulse 59 10/29/2019 1:49 PM CDT Temperature 36.7 ??C (98 ??F) 10/29/2019 1:49 PM CDT Respiratory Rate 20 09/21/2019 9:11 AM CDT Oxygen Saturation 94% 10/29/2019 1:49 PM CDT Inhaled Oxygen Concentration - - Weight 90.8 kg (200 lb 3.2 oz) 10/29/2019 1:49 P M CDT Height 165.1 cm (5' 5 ) 10/29/2019 1:49 PM CDT Body Mass Index 33.32 10/29/2019 1:49 PM CDT Plan of Treatment Health Maintenance Due Date Last Done Comments ASCVD Statin 1965 Cervical Cancer Screening Pa p Smear (Age 30 to 64) Every 3 Years 1965 Colorectal Cancer Screening Colonoscopy (10 Years) 1965 Annual Physical 11/27/1966 Hepatitis C 11/27/1981 DTaP, Tdap and Td Vaccines ( 1 - Tdap) 11/27/1982 Cervical Cancer Screening Pa p with HPV Testing (Age 30 to 64) Every 5 Years 11/27/1993 Cervical Cancer Screening wi th HPV 11/27/1993 Zoster Vaccines (1 of 2) 11/27/2013 Pneumococcal Vaccine: Pediatrics (0 to 5 Years) and At-Risk Patients (6 to 64 Years) (2 of 2 - PPSV23 or PCV20) 11/13/2018 09/18/2018 Mammogram Screening 09/10/2021 09/11/2019, 01/25/2013 ASCVD LDL 04/07/2023 04/07/2022, 09/20/2019, 06/06/2018 COVID-19 Vaccine (1 - 2023-2 5 season) 2023 RSV Immunization or 60+ Years (1 - Risk 60-74 years 1-dose series) 2023 Influenza Adult (#1) 2023 Meningococcal B Vaccine Aged Out No l onger eligible based on patient's age to complete this topic Meningococcal Vaccine Aged Out No poonam ajit eligible based on patient's age to complete this topic RSV Immunizations Under 20 Months Aged Out No longer eligible b ased on patient's age to complete this topic Procedures Procedure Name Priority Date/Time Associated Diagnosis Comments LIPID PANEL Routine 04/07/2022 7:21 AM PATIENT TRANSPORT ORDERLY Hypothyroidism Fibromyalgia MG SCREENING W CARLOS MANISH DIGI Routine 09/11/2019 7:12 AM CDT Visit for screening mammogram from Last 3 Months or Most Recently Relevant to Health Maintenance Results * (ABNORMAL) LIPID PANEL (04/07/2022 7:21 AM PATIENT TRANSPORT ORDERLY) CHOLESTEROL 180 <200 MG/DL 04/07/2022 7:48 AM PATIENT TRANSPORT ORDERLY [facility] Comment: THE NATIONAL LIPID ASSOCIATION AND THE NATIONAL CHOLESTEROL EDUCATION PROGRAM (NCEP) HAVE SET THE FOLLOWING GUIDELINES FOR TOTAL CHOLESTEROL IN ADULTS AGES 18 AND UP. DESIRABLE: <200 BORDERLINE HIGH: 200-239 HIGH: > OR = 240 TRIGLYCERIDES 151(H) <150 MG/DL 04/07/2022 7:48 AM PATIENT TRANSPORT ORDERLY [facility] Comment: THE NATIONAL LIPID ASSOCIATION AND THE NATIONAL CHOLESTEROL EDUCATION PROGAM (NCEP) HAVE SET THE FOLLOWING GUIDELINES FOR TRIGLYCERIDES IN ADULTS AGES 18 AND UP. NORMAL: <150 BORDERLINE HIGH: 150 TO 199 HIGH: 200 TO 499 VERY HIGH: >499 HDL 59 >49 MG/DL 04/07/2022 7:48 AM PATIENT TRANSPORT ORDERLY [facility] Comment: THE NATIONAL LIPID ASSOCIATION AND THE NATIONAL CHOLESTEROL EDUCATION PROGAM (NCEP) HAVE SET THE FOLLOWING GUIDELINES FOR HDL CHOLESTEROL IN ADULTS AGES 18 AND UP. MALES: >39 FEMALES: >49 LDL-C 91 <100 MG/DL 04/07/2022 7:48 AM PATIENT TRANSPORT ORDERLY [facility] Comment: THE NATIONAL LIPID ASSOCIATION AND THE NATIONAL CHOLESTEROL EDUCATION PROGAM (NCEP) HAVE SET THE FOLLOWING GUIDELINES FOR LDL CHOLESTEROL IN ADULTS AGES 18 AND UP. DESIRABLE: <100 ABOVE DESIRABLE: 100 TO 129 BORDERLINE HIGH: 130 TO 159 HIGH: 160 TO 189 VERY HIGH: >189 VLDL CALCULATION 30 MG/DL 04/07/19 7:48 AM PATIENT TRANSPORT ORDERLY [facility] Comment:REFERENCE RANGE NOT ESTABLISHED CHOL/HDL RATIO 3.1 04/07/2022 7:48 AM PATIENT TRANSPORT ORDERLY [facility] Comment:REFERENCE RANGE NOT ESTABLISHED LDL/HDL 1.5 04/07/2022 7:48 AM PATIENT TRANSPORT ORDERLY [facility] Comment:REFERENCE RANGE NOT ESTABLISHED NON HDL CHOLESTEROL 121 MG/DL 04/07/2022 7:48 AM [facility] Comment:REFERENCE RANGE NOT ESTABLISHED 04/07/2022 7:21 AM PATIENT TRANSPORT ORDERLY Chad Roberts MD LABORATORY Final Result [facility] [address] [place] [address], * MG SCREENING W CARLOS MANISH DIGI (09/11/2019 7:12 AM CDT) Anatomical Region Laterality Modality Breast Bilateral Mammography 09/11/2019 1:46 PM CDT Impressions 09/11/2019 1:49 PM CDT IMPRESSION: No mammographic findings suggestive of malignancy. Recommendation: 1: Routine screening mammogram ??bilateral ??in 1 year ? Assessment: ACR BI-RADS Category 2 - Benign. Interpreted By: Florin John MD, 09/11/2019 1:46 PM Narrative 09/11/2019 1:49 PM CDT Examination: Digital bilateral screening mammogram Clinical history: Asymptomatic routine screening study, family history of breast and ovarian cancer Comparison: Mammograms 12/27/2012, 07/07/2015 Technique: Digital screening mammography of both breasts was performed. Breast tomosynthesis acquisitions were obtained bilaterally. This study was read with the assistance of a computer-aided detection system. Tissue density: The breast tissue is almost entirely fatty. Findings: The breast tissue has some minimal fibroglandular tissue present. No suspicious masses, malignant appearing calcifications, skin thickening or other abnormalities are present. ??No significant change from the prior exam. us Nicki Kasper MD MAMMO Final Result from Last 3 Months or Most Recently Relevant to Health Maintenance Insurance [facility] MEDICAID [facility] [employer] [facility] C/[employer] [place] [id number] Advance Directives * Full Code (Latest Code Status on File) Date Activated Date Inactivated Comments 09/19/2019 1:18 PM 09/21/2019 2:07 PM * Full Code Date Activated Date Inactivated Comments 06/05/2018 4:42 PM 06/06/2018 8:59 PM
--- OUTSIDE RECORDS SUMMARY | 2024-04-23 09:39 | XMS_ITS | Clinical Summary ---
Author Organization [facility] Address [address] [place] [address] Phone Care Team Providers Care Office Support Clerk Name Role Phone KALIA MORROW-CLARITAMARVIN Unavailable [phone] JUAN JOSE AMIN DO Primary Care Provider [phone] Reason for Visit and Chief Complaint The Chief Complaint is: 3 MO FU Plan of Treatment Urine sample ordered and sent to lab for testing with confirmation via LCMS when appropriate. Urine drug testing is ordered to monitor opioid use and ongoing candidacy; verify compliant use of controlled substances and monitor for use of illicit substances as these may result in harmful interactions. - Last Documented On 05/03/2023 9:51AM ; [facility] Education and Decision Aids were provided during visit for: Pill Count: one HYDROCODONE Last Documented On 4 8:40AM ; [facility] Pill Count: Patient did not bring pain medication to appointment for pill count, per policy. Advised in order to continue to safely prescribe opioids, medication must be brought to each appointment Last Documented On 4 8:33AM ; [facility] Assessments Includes: Assessments from this encounter Findings - Sacroiliitis [M46.1 - Sacroiliitis, not elsewhere classified] - Last Documented On 05/03/2023 9:51AM ; [facility] - Lumbar spondylosis without myelopathy or radiculopathy [M47.816 - Spondylosis without myelopathy or radiculopathy, lumbar region] - Last Documented On 05/03/2023 9:51AM ; 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 Current Medications (continue as prescribed) Pregabalin 200 MG Oral Capsule 07/10/2023 Provider: MARVIN CENTENO Diagnosis: TAKE ONE CAPSULE BY MOUTH TWICE A DAY Last Documented On 4 4:42PM By MARVIN CENTENO ; [facility] Nortriptyline HCl 25 MG Oral Capsule 05/23/2023 Prov ider: MARVIN CENTENO Diagnosis: TAKE ONE CAPSULE BY MOUTH DAILY Last Documented On 4 1:12PM By MARVIN CENTENO ; [facility] Levothyroxine Sodium 88 MCG Oral Tablet 02/01/2023 Jagjit hess: Diagnosis: Last Documented On 02/02/2023 8:48AM By Maggie MEDRANO ; [facility] Montelukast Sodium 10 MG Oral Tablet 01/11/2023 Prov ider: JUAN JOSE AMIN DO Diagnosis: Last Documented On 02/02/2023 8:48AM By Maggie MEDRANO ; [facility] DULoxetine HCl 20 MG Oral Ca psule Delayed Release Particles 11/29/2022 Provider: TOMMY WATERS MD Diagnosis: Last Documented On 02/02/2023 8:48AM By Maggie MEDRANO ; [facility] Albuterol Sulfate HFA 108 (9 0 Base) MCG/ACT Inhalation Aerosol Solution 10/07/2020 Provider: Diagnosis: Last Documented On 3 9:52AM By JENNIFER JOEPKit ; [facility] Omeprazole 40 MG Oral Capsule Delayed Release 10/08/19 21 Provider: Diagnosis: Last Documented On 3 9:52AM By JENNIFER TEE ; [facility] Euthyrox 112 MCG Oral Tablet 10/07/2020 Provider: Diagnosis: Last Documented On 3 9:52AM By JENNIFER TEE ; [facility] Medications Administered Includes: Administered Medications from this encounter No Administered Medications Recorded Vital Signs Includes: Vital Signs from this encounter Vital Name 05/03/2023 08:35A Blood Pressure Sitting L 130/70 Pulse Rate-Sitting (bpm) 80 Temp-Oral (F) 96.8 Height (in) 65 Weight (lb) 204.8 Body Mass Index 34.1 Body Surface Area 2 Pain Level 8 Oxygen Saturation (%) 98 Last Documented: On 05/03/2023 8:39AM ; [facility] Results Includes: Results discussed during [...] levels. She continues home exercises as tolerated. [place] prescription monitoring site appropriate. Past visit 09/07/22: [...] 05/03/2023 Last Documented On 4 9:51AM ; [facility] [PHQ-2] Patient Health Questionnaire 2 i tem total score: 15 (Scale: 0-6) 10/07/2020 Last Documented On 4 8:32AM ; [facility] Difficulty walking 10/07/2020 Last Documented On 4 8:32AM ; [facility] Smoking Status Unknown Procedures and Surgical History Includes: Procedures from this encounter Procedures Code Diagnosis Performing Provider Service Location Service Date CLINIC VISIT T1015 Spondylosis w/o myelopathy or radiculopathy, lumbar region, Spinal stenosis, lumbosacral region, Sacroiliitis, not elsewhere classified, rodent exterminator (current) use of opiate analgesic MARVIN MOTTA ANP-BC [facility] 05/03/2023 Last Documented On 4 1:31PM ; [facility] use of tobacco assessment performed 1000F Last Documented On 4 8:34AM ; [facility] review of medications documented 1160F Last Documented On 4 8:34AM ; [facility] assessment of suicide risk performed Last Documented On 4 9:14AM ; [facility] screening for adult depression: impressi on and score four Last Documented On 4 9:14AM ; [facility] standardized depression screening: posit mya for symptoms Last Documented On 4 9:14AM ; [facility] SOAPP-R: total score 6 Last Documented On 4 9:12AM ; [facility] Medical History Includes: Medical History addressed during this encounter Description Last Updated Currently wearing eyeglasses 02/11/2022 Last Documented On 4 8:32AM ; [facility] Deep muscle stimulation 02/11/2022 Last Documented On 4 8:32AM ; [facility] Injection/Nerve blocks 02/11/2022 Last Documented On 4 8:32AM ; [facility] Moderate to severe pain 02/11/2022 Last Documented On 4 8:32AM ; [facility] Physical therapy 02/11/2022 Last Documented On 4 8:32AM ; [facility] Please list all illnesses/co nditions you have been diagnosed with: Fibromyalgia Degeneration of back 02/11/2022 Last Documented On 4 8:32AM ; [facility] Treatment with TENS unit 02/11/2022 Last Documented On 4 8:32AM ; [facility] Wearing contact lenses 02/11/2022 Last Documented On 4 8:32AM ; [facility] Family History Includes: Family History addressed during this encounter Description Last Updated Family history of Arthritis 02/11/2022 Last Documented On 4 8:33AM ; [facility] Family history of ischemic heart disease 02/11/2022 Last Documented On 4 8:33AM ; [facility] Family history of kidney disease 022 Last Documented On 4 8:33AM ; [facility] Maternal history of Arthritis 02/11/2022 Last Documented On 4 8:33AM ; [facility] Maternal history of reported family hist ory of seizures 02/11/2022 Last Documented On 4 8:33AM ; [facility] Sororal history of stroke/paralysis 01/25 Last Documented On 4 8:33AM ; [facility] Review of Systems Includes: Review [...] ctive Last Documented On 4 8:38AM ; [facility] Encounters Encounter Provider Location Date Check-In Time Check-Out Time Diagnosis PAIN MANAGEMENT FOLLOW UP MARVIN CENTENO [facility] 05/03/19 24 8:32AM 9:14AM Chronic Pain Syndrome,Sacroil iitis,Fibromyalg ia,Spondylosis Without Myelopathy Or Radiculopathy Lumbar Region,Spinal Stenosis Lumbosacral,Office Coordinator Receptionist Use of Opiate Analgesic Insurance Includes: Active Insurance Policies Plan Name Member ID Group # Subscriber Relationship Effect mya Dates 1 - MEDICAID [place] [facility] [facility] [id number] SHIRA MERAZ Self Clinical Notes Includes: Clinical Notes from this encounter * Progress note Date Encounter Last Documented by 05/03/2023 PAIN MANAGEMENT FOLLOW UP Last d ocumented on 05/03/2023; 9:51 AM, MARVIN CENTENO; [facility] Chief Complaint The Chief Complaint [...] posterior thigh. She had a fall around [place] and the right shoulder has been aggravated [...] levels. She continues home exercises as tolerated. [place] prescription monitoring site appropriate. Past visit 09/07/22: [...] syndrome [G89.4 - Chronic pain syndrome] - detention use of opiate analgesic [Z79.891 - detention (current) use of opiate analgesic] Therapy - [...] daily. Follow-up 6 weeks Plan StartCited - rodent exterminator (current) use of opiate analgesic Lab: PRESCRIBED [...] but may be subject to typographical or cinetechnician errors. Verify all diagnoses, medications, dosages, and patient instructions with patient and/or the originator of this document. Care Team - CRISTHIAN WELSH-BC - Pain Management Health Reminders - Assess BMI satisfied 05/03/2023. - Assess Need for CT Lung Screen satisfied 05/03/2023. - Assess Tobacco Use satisfied 05/03/2023. - Depression Screening satisfied 05/03/2023. - Follow up plan for Depression Screening satisfied 05/03/2023.
[2024-04-23 09:52] LABS: Hemoglobin A1C 5.4 % (<5.7)
[2024-04-23 10:22] LABS: Alanine Aminotransferase 25 U/L (14-59); Albumin Level 3.9 g/dL (3.4-5.0); Alkaline Phosphatase 92 U/L (46-116); Anion Gap 9 mmol/L (4-12); Aspartate Amino Transferase 21 U/L (15-37); Bilirubin,Total 0.6 mg/dL (0.00-1.00); Blood Urea Nitrogen 9 mg/dL (7-18); Calcium 9.1 mg/dL (8.5-10.1); Carbon Dioxide 29 mmol/L (21-32); Chloride 103 mmol/L (98-108); Cholesterol 304 mg/dL (0-200); Estimated Glomerular Filt Rate 51; Free T4 Free Thyroxine 0.46 ng/dL (0.76-1.46); Glucose 96 mg/dL (70-99); HDL Direct 58 mg/dL (40-60); LDL Cholesterol Calculated 199 mg/dL (<130); Osmolality Calculated 290 mOsm/kg (285-295); Potassium 4.6 mmol/L (3.5-5.1); Sodium 141 mmol/L (136-145); Thyroid Stimulating Hormone 28.68 uIU/mL (0.36-3.74); Total Protein 7.2 g/dL (6.4-8.2); Triglycerides 234 mg/dL (0-150)
[2024-04-25 02:29] LABS: Vitamin D 25 Hydroxy 25 ng/mL (30-100)
== END 2024-04-23 09:14 | disposition home or self-care (01) ==
LOC: CHSLAB 09:17
PROVIDERS: PCP Nurse Practitioner Family; Visit Provider Nurse Practitioner Family
DX: E55.9 Vitamin D deficiency, unspecified (principal); E03.9 Hypothyroidism, unspecified; K21.9 Gastro-esophageal reflux disease without esophagitis; M79.7 Fibromyalgia; J45.909 Unspecified asthma, uncomplicated; R73.01 Impaired fasting glucose; E78.5 Hyperlipidemia, unspecified
CPT/HCPCS: 36415; 80053; 80061; 82306; 83036; 84439; 84443; 85025

== ENCOUNTER 2024-09-07 12:14 | Emergency (ER) | payer MEDICAID, SELFPAY ==
--- NOTE | ~2024-09-07 | XR_ITS ---
XR forearm RT 2V 09/07/2024 12:30 INDICATION: Right arm pain PROCEDURE: 2 views right forearm COMPARISON: No prior studies for comparison. FINDINGS: Fracture, dislocation or subluxation is not identified. The soft tissues appear within norm al limits. No foreign bodies are identified. IMPRESSION: 1: NO ACUTE BONE OR JOINT ABNORMALITY IDENTIFIED. Reviewed, dictated and finalized at location B.
--- NOTE | 2024-09-07 12:18 | ED_ITS ---
HPI - Animal Bite General Chief Complaint: Animal Bite Stated Complaint: cat bite--stray cat Source: patient Mode of arrival: ambulatory Limitations: no limitations History of Present Illness HPI narrative: STRAY CAT BITE TO RIGHT FOREARM PRIOR TO ARRIVAL. PATIENT USUALLY FEEDS THE CAT TWICE A DAY, TODAY THE CAT DID NOT LOOK ANY DIFFERENT THAN BEFORE, PATIENT TOOK HER LONG TIME TO CLEAN THE FOOD BOWL AND CAT WAS HUNGRY, SOMEHOW ATTACK THE PATIENT HAND TO GET THE FOOD. PATIENT IS TELLING ME THAT SHE CAN CATCH THE CAT BECAUSE SHE WITH THE YEAR BE[place] C[place]. DECLINED ANY RABIES VACCINE AT THIS TIME BECAUSE DOES NOT BELIEVE THAT THE CT LOOKS ANY DIFFERENT THAN BEFORE AND SHE IS PLANNING TO CALL THE LOCAL HEALTH DEPARTMENT Related Data Allergies Allergy/AdvReac Type Severity Reaction Status Date / Time Sulfa (Sulfonamide Allergy Severe Swelling Verified 09/07/24 13:15 Antibiotics) of Lip/Tongue/Throat Review of Systems Review of Systems: All systems reviewed & are unremarkable except as noted in HPI and below PMFSH Past Medical History Medical History Asthma GERD (gastroesophageal reflux disease) Fibromyalgia Hypothyroidism Surgical History Surgical History History of lumpectomy of left breast H/O shoulder surgery left Previous section Social History Social History Smoking status: Never smoker Alcohol intake: never Substance use: never Substance use type: does not use Do You Feel Safe in your Home?: Yes Lack of Transportation: No Lack of Food: Never True Current Housing: I Have Housing Concerned About Future Housing: No Difficulty Paying Gas/Electric Bills: No Difficulty Paying for Meds: No Currently Unemployed: No Education: Associate Degree Difficulty w/ Childcare or Family Care: No Exam Narrative: GENERAL APPEARANCE: WELL-DEVELOPED, WELL-NOURISHED SKIN: NORMAL COLOR VASCULAR: NORMAL PERIPHERAL PULSES, NORMAL CAPILLARY REFILL. MUSCULOSKELETAL: RIGHT FOREARM SHOWED MULTIPLE PUNCTURE WOUND AND ABRASIONS ANTERIORLY AND DISTALLY NEUROLOGIC: ALERT AND ORIENTED ?3, OXYGEN EQUIPMENT TECHNICIAN IS NORMAL TESTED, NO GROSS MOTOR DEFICIT MDM - Animal Bite MDM Narrative Medical decision making narrative: CUT BITE TO RIGHT FOREARM WASHED WITH WARM WATER AND SOAP STARTED ON AUGMENTIN PATIENT IS UP-TO-DATE FOR TETANUS SHOT LAST 2020. PATIENT DECLINED RABIES VACCINE AT THIS TIME BECAUSE SHE IS TELLING ME THAT SHE IS ABLE TO CATCH THE CAT AND REPORT TO LOCAL HEALTH DEPARTMENT. AND CAT DID NOT LOOK ANY DIFFERENCE THAN BEFORE AND REASON OF THE BITE PROBABLY THE CAT WAS HUNGRY AND PATIENT TOOK LONG TIME TO CLEAN THE FOOD BOWL. Imaging Data Radiologist's impression: Impressions Forearm X-Ray 09/07/24 12:55 IMPRESSION: 1: NO ACUTE BONE OR JOINT ABNORMALITY IDENTIFIED. Critical Care Time Critical Care Time Critical Care Time: No Discharge Plan Discharge Clinical Impression: Cat bite of forearm Patient Disposition: Home Condition: Stable Instructions: Antibiotic Form, Animal Bite (ED) Additional Instructions: RETURN IF SYMPTOMS ARE WORSENING , CALL YOUR FAMILY PHYSICIAN FOR APPOINTMENT, TAKE TYLENOL, IBUPROFEN NEEDED FOR ACHES AND PAIN, CONTINUE HOME MEDICATIONS. CONTACT LOCAL HEALTH DEPARTMENT SOON POSSIBLE TO CATCH AND MONITOR THE CAT FOR AT LEAST 10 DAYS TO RULE OUT RABIES IN CASE OF FAILURE TO CATCH THE CAT TO COME BACK TO THE EMERGENCY ROOM IMMEDIATELY FOR RABIES VACCINE Patient Language: Upper Sorbian Prescriptions: New amoxicillin-pot clavulanate [Augmentin] 500-125 mg tablet 1 tablet PO Q8H Qty: 21 0RF No Action hydrocodone-acetaminophen 5-325 mg tablet 1 tablet PO Q8H PRN (Reason: pain) Qty: 20 0RF duloxetine 60 mg capsule,delayed release(DR/EC) 60 mg PO DAILY Qty: 90 3RF methocarbamol 750 mg tablet 750 mg PO TID PRN (Reason: muscle spasm) Qty: 30 2RF montelukast 10 mg tablet 10 mg PO QHS Qty: 90 3RF nortriptyline 25 mg capsule 25 mg PO DAILY Qty: 90 3RF pregabalin 200 mg capsule 200 mg PO BID Qty: 180 1RF pregabalin 50 mg capsule 50 mg PO DAILY Qty: 90 1RF simvastatin 20 mg tablet 20 mg PO DAILY Qty: 90 3RF sumatriptan succinate 25 mg tablet See Rx Instructions PO .COMPLEX Qty: 10 2RF Rx Instructions: take 1 tab at onset of headache; if no relief may repeat 1 tab after at least 2 hrs; max = 4 tabs/24 hr PO albuterol sulfate 90 mcg/actuation HFA aerosol inhaler 1 puff inhalation Q4H PRN (Reason: shortness of breath or wheezing) Qty: 8.5 0RF benzonatate 200 mg capsule 200 mg PO TID PRN (Reason: cough) Qty: 30 0RF prednisone 50 mg tablet 50 mg PO DAILY Qty: 7 0RF amoxicillin-pot clavulanate 875-125 mg tablet 1 tablet PO BID Qty: 20 0RF levothyroxine [Synthroid] 100 mcg tablet 100 mcg PO DAILY Qty: 90 1RF Follow-up/Referrals: UNKNOWN,DOCTOR [Primary Care Provider] - Stand Alone Forms: Work/School Release IP
[2024-09-07] MEDS: NEOMYCIN/POLYMYXIN/BACITRACIN OINTMENT PACKET 2 PACKET (12:28)
[2024-09-07] MEDS: HYDROcodone/acetaminophen (*CRX) 5-325 MG TABLET 1 TAB PO (12:29)
[2024-09-07] MEDS: IBUPROFEN 600 MG TABLET PO (12:30)
[2024-09-07] MEDS: AMOXICILLIN/CLAVULANATE K 875-125 MG TAB 1 TABLET PO (12:31)
--- NOTE | 2024-09-07 13:28 | PC.NURSE ---
animal bite report called to animal control. message left . report also faxed. [facility].
== END 2024-09-07 13:14 | disposition home or self-care (01) ==
PROVIDERS: Emergency Provider Emergency Medicine
DX: S51.851A Open bite of right forearm, initial encounter (principal); E03.9 Hypothyroidism, unspecified; J45.909 Unspecified asthma, uncomplicated; W55.01XA Bitten by cat, initial encounter
CPT/HCPCS: 73090; 99283; A9270

== ENCOUNTER 2024-11-03 13:22 | Emergency (ER) | payer MEDICAID, SELFPAY ==
--- NOTE | ~2024-11-03 | XR_ITS ---
EXAM: XR lumbar spine 2-3V DATE: 11/03/2024 13:45 HISTORY: Low back pain radiates down Rt. leg x2 weeks, NKI . COMPARISON: 10/10/2020; CT L-spine 06/07/2023. FINDINGS: 5 nonrib-bearing lumbar-type vertebral bodies. Pedicles intact. Normal vertebral body alig nment. Vertebral body heights preserved. Multilevel degenerative disc disease, most pronounced at L5- S1. Multilevel moderate mid and lower lumbar facet arthropathy. Fractures of the left first and secon d lumbar transverse processes. The L1 transverse process fracture is mildly displaced and appears to have sclerotic margins, with which is associated with chronicity. There is moderate distraction of th e L2 transverse process fracture, without sclerotic margins IMPRESSION: Acute versus chronic (or perhaps acute and chronic) L1 and L2 transverse process fracture s. Reviewed, dictated and finalized at location K. IMPRESSION: Acute versus chronic (or perhaps acute and chronic) L1 and L2 trans verse process fractures.
[2024-11-03 13:25] VITALS: BP 117/89; PULSE 76; RESP 20; TEMP 36.6; O2SAT 98
--- NOTE | 2024-11-03 13:32 | ED_ITS ---
HPI - Back Pain/Injury General Chief Complaint: Extremity Problem,Nontraumatic Stated Complaint: sciatica pain, right leg Source: patient Mode of arrival: ambulatory Limitations: no limitations History of Present Illness HPI Narrative: patient is a 58-year-old female with right lower back more so than left of pain that is sharp and shooting down the right lower extremity to the foot. She has had this in the past. No numbness or motor deficit. No saddle anesthesia or urine or stool changes. Patient takes much medication for her back already at this time. MD elicited complaint: back pain Pertinent past history: prior back pain Onset (ago): week(s) ( One) Timing: intermittent and progressively worsening Severity: moderate Pain scale (0-10): 7 Similar Symptoms Previously: Yes Quality: sharp, aching and throbbing Location: lumbar spine Radiation: right leg below the knee Exacerbating factors: movement and sitting upright Relieving factors: immobilization Context: other ( patient has acute on chronic lumbar back pain with sciatica to the right; she does see a doctor for her back but does not get pain medication) Associated symptoms: denies other symptoms Treatments prior to arrival: NSAIDS and acetaminophen Related Data Allergies Allergy/AdvReac Type Severity Reaction Status Date / Time Sulfa (Sulfonamide Allergy Severe Swelling Verified 11/03/24 13:27 Antibiotics) of Lip/Tongue/Throat Review of Systems Review of Systems: All systems reviewed & are unremarkable except as noted in HPI and below Constitutional: Constitutional: Reports no additional constitutional complaints Eyes: Eyes: Reports no additional eye complaints ENT: Reports system reviewed and no additional complaints, except as documented Cardiovascular: Cardiovascular: Reports no additional cardiovascular complaints Respiratory: Respiratory: Reports no additional respiratory complaints Gastrointestinal: Gastrointestinal: Reports no additional gastrointestinal complaints Genitourinary: Genitourinary: Reports no additional female genitourinary complaints Musculoskeletal: Musculoskeletal: Reports no additional musculoskeletal complaints Integumentary/Breasts: Skin/Breast: Reports system reviewed and no additional complaints, except as docu Neurologic: Reports system reviewed and no additional complaints, except as documented Psychiatric: Psychiatric: Reports no additional psychiatric complaints Hematologic/Lymphatic: Hematologic/Lymphatic: Reports no additional hematologic/lymphatic complaints Allergic/Immunologic: Allergic/Immunologic: Reports no additional allergic/immunologic complaints PMFSH Past Medical History Medical History Asthma GERD (gastroesophageal reflux disease) Fibromyalgia Hypothyroidism Surgical History Surgical History History of lumpectomy of left breast H/O shoulder surgery left Previous section Social History Social History Smoking status: Never smoker Alcohol intake: never Substance use: never Substance use type: does not use Do You Feel Safe in your Home?: Yes Lack of Transportation: No Lack of Food: Never True Current Housing: I Have Housing Concerned About Future Housing: No Difficulty Paying Gas/Electric Bills: No Difficulty Paying for Meds: No Currently Unemployed: No Education: Associate Degree Difficulty w/ Childcare or Family Care: No Exam Const: General: healthy appearing Nutritional Appearance: well nourished Orientation/consciousness: patient oriented x3 Limitations: no limitations HENMT: Head: normal to inspection Ears: external ears normal Face/Nose/Sinus: Normal external nose present Eyes: Conjunctivae: conjunctivae normal Pupils: Equal, round and reactive pupils present EOM: EOMs intact bilaterally Direct Ophthalmoscopy: no photophobia Neck: Neck: normal visual inspection, no lymphadenopathy and no meningeal signs Chest: Chest palpation & inspection: normal inspection of the chest Resp: Effort & Inspection: normal respiratory effort and not labored Auscultation: clear to auscultation bilaterally and no crackles Cardio: Rate: regular rate Rhythm: regular rhythm Heart sounds: no murmurs GI: Inspection: non-distended GI Palp: Yes Soft to palpation and No Tenderness to palpation present (GI) Auscultation: normal bowel sounds : General: Yes bladder normal to palpation Back/Spine/Pelvis: Back: no CVA tenderness Other: see Neuro section Skin: General skin exam: normal color Rashes: no rashes Wounds: no wounds Neuro: General: patient oriented x3, moves all extremities, no meningeal signs, no focal motor deficits and CN's II-XI intact bilaterally Cranial nerves: Yes Nystagmus not present Speech: normal speech Gait exam (Neuro): Normal gait present ( difficulty walking due to pain of the right lower back and some radiation ) Other: straight leg test on the right was positive Extrem: General: normal to inspection Psych: Mental Status: mental status grossly normal Affect: normal affect Attitude: cooperative Course Vital Signs Vital signs: Vital Signs Temperature 36.6 C 11/03/24 13:25 Pulse Rate 76 11/03/24 13:25 Respiratory Rate 20 11/03/24 13:25 Blood Pressure 117/89 11/03/24 13:25 Pulse Oximetry 98 11/03/24 13:25 Oxygen Delivery Room Air 11/03/24 13:25 Temperature 36.6 C 11/03/24 13:25 Pulse Rate 76 11/03/24 13:25 Respiratory Rate 20 11/03/24 13:25 Blood Pressure 117/89 11/03/24 13:25 Pulse Oximetry 98 11/03/24 13:25 Oxygen Delivery Room Air 11/03/24 13:25 MDM - Back Pain/Injury MDM Narrative Medical decision making narrative: patient has sciatica of acute on chronic lumbar pain and right lower extremity pain and numbness and tingling with straight leg test and history of the same issues. We will get an x-ray and treat accordingly. Steroid and pain reliever in the ER. Medical Records Attestation: I reviewed the patient's medical records. Imaging Data Attestation: I personally reviewed and interpreted this imaging study as follows: Radiologist's impression: x-ray lumbar spine shows IMPRESSION: Acute versus chronic (or perhaps acute and chronic) L1 and L2 transverse process fractures. Discharge Plan Discharge Clinical Impression: Acute lumbar radiculopathy Closed fracture of transverse process of lumbar vertebra Qualifiers: Encounter type: initial encounter Qualified Code(s): S32.009A - Unspecified fracture of unspecified lumbar vertebra, initial encounter for closed fracture Patient Disposition: Home Condition: Stable Instructions: Lumbar Radiculopathy (ED) Additional Instructions: Please follow-up with the primary doctor in the next week. I suggested MRI of the lower back for further evaluation. talk to your primary doctor about going to a back specialist for the multiple fractures of the transverse process. Patient Language: Bengali Prescriptions: New prednisone 20 mg tablet 40 mg PO DAILY 3 Days Qty: 6 0RF hydrocodone-acetaminophen 5-325 mg tablet 1 tablet PO Q8H PRN (Reason: pain) Qty: 20 0RF Rx Instructions: 1-2 tabs per dose No Action duloxetine 60 mg capsule,delayed release(DR/EC) 60 mg PO DAILY Qty: 90 3RF methocarbamol 750 mg tablet 750 mg PO TID PRN (Reason: muscle spasm) Qty: 30 2RF montelukast 10 mg tablet 10 mg PO QHS Qty: 90 3RF simvastatin 20 mg tablet 20 mg PO DAILY Qty: 90 3RF sumatriptan succinate 25 mg tablet See Rx Instructions PO .COMPLEX Qty: 10 2RF Rx Instructions: take 1 tab at onset of headache; if no relief may repeat 1 tab after at least 2 hrs; max = 4 tabs/24 hr PO levothyroxine [Synthroid] 100 mcg tablet 100 mcg PO DAILY Qty: 90 1RF pregabalin 200 mg capsule 200 mg PO BID Qty: 180 1RF Follow-up/Referrals: Allegra Marshall, [employer] PLANNING OPERATOR-C [Primary Care Provider] - Time of Disposition: 14:24
[2024-11-03] MEDS: HYDROcodone/acetaminophen (*CRX) 10-325 MG TABLET 1 TAB PO (13:42)
[2024-11-03 14:20] VITALS: BP 120/74; PULSE 72; RESP 20; O2SAT 98
[2024-11-03 15:31] VITALS: BP 110/72; PULSE 67; RESP 20; TEMP 36.7; O2SAT 99
== END 2024-11-03 15:31 | disposition home or self-care (01) ==
PROVIDERS: Emergency Provider Emergency Medicine; PCP Nurse Practitioner Family
DX: S32.009A Unspecified fracture of unspecified lumbar vertebra, initial encounter for closed fracture (principal); M54.16 Radiculopathy, lumbar region; E03.9 Hypothyroidism, unspecified; X58.XXXA Exposure to other specified factors, initial encounter
CPT/HCPCS: 72100; 99283; A9270; J7512

== ENCOUNTER 2024-12-05 15:53 | Outpatient (CLI) | payer MEDICAID, SELFPAY ==
--- NOTE | ~2024-12-05 | XR_ITS ---
XR lumbar spine min 4V Indication: M47.816 - Spondylosis without myelopathy or radiculopathy... Comparison: None Findings: No fracture, no subluxation with flexion extension Moderate loss of disc height L3-4, L4-5 and L5-S1. Soft tissues unremarkable Impression: No acute abnormality. Reviewed, dictated and finalized at location A. Impression: No acute abnormality.
--- NOTE | ~2024-12-05 | MR_ITS ---
EXAMINATION: MR lumbar spine wo con DATE: 12/05/2024 16:35 INDICATION: Spondylosis without myelopathy or radiculopathy. TECHNIQUE: Magnetic resonance imaging (MRI) of the lumbar spine was performed without intravenous contrast. Sequences included sagittal T2-weighted FSE, sagittal T2-weighted FS FSE, sagittal T1-weighted FSE, and axial T2-weighted FSE. COMPARISON: Lumbar spine MRI 10/10/2020 FINDINGS: There is 7 degrees dextrocurvature of lumbar spine. Vertebral body heights are normal. There is moderately decreased disc height at L1-L2, mildly decreased disc height at L4-L5, and severely decreased disc height at L5-S1. The distal spinal cord signal intensity is normal. The conus medullaris is at L1. The following disc levels are specifically discussed: L1-L2: The disc is bulging. There is moderate right and mild left facet joint osteoarthritis. There is mild bilateral neural foraminal stenosis. There is mild central canal stenosis. L2-L3: The disc is bulging. There is severe bilateral facet joint osteoarthritis. There is mild bilateral neural foraminal stenosis. There is mild central canal stenosis. L3-L4: The disc is bulging with superimposed right foraminal extrusion. There is severe bilateral facet joint osteoarthritis. There is mild bilateral neural foraminal stenosis. There is no central canal stenosis. L4-L5: There is a right central extrusion. There is severe bilateral facet joint osteoarthritis. There is mild bilateral neural foraminal stenosis. There is mild central canal stenosis. There is moderate stenosis of right lateral recess. L5-S1: The disc is bulging. There is severe bilateral facet joint osteoarthritis. There is moderate right and mild left neural foraminal stenosis. There is mild central canal stenosis. IMPRESSION: 1. Severe lumbar spondylosis with interval worsening at L4-L5. Reviewed, dictated and finalized at location E.
--- NOTE | ~2024-12-05 | XR_ITS ---
EXAMINATION: XR hip RT min 2V, 12/05/2024 16:00 CDT HISTORY: M25.551 - Pain in right hip COMPARISON: No comparisons available. Findings: No acute fracture or malalignment. No significant degenerative changes. Soft tissues unremarkable. Impression: No acute fracture or malalignment. Reviewed, dictated and finalized at location A. Impression: No acute fracture or malalignment.
== END 2024-12-05 15:54 | disposition home or self-care (01) ==
PROVIDERS: PCP Nurse Practitioner Family; Visit Provider Nurse Practitioner Adult Health
DX: M47.816 Spondylosis without myelopathy or radiculopathy, lumbar region (principal); S32.009A Unspecified fracture of unspecified lumbar vertebra, initial encounter for closed fracture; X58.XXXA Exposure to other specified factors, initial encounter; M25.551 Pain in right hip
CPT/HCPCS: 72110; 72148; 73502

== ENCOUNTER 2025-01-07 11:00 | Day surgery (SDC) | payer MEDICAID, SELFPAY ==
[2024-12-31 09:11] VITALS: BMI 34.0
--- NOTE | ~2025-01-07 | XR_ITS ---
EXAMINATION: XR fluoroscopy no charge DATE: 01/07/2025 12:46 INDICATION: Midline L4-L5 interlaminar epidural steroid injection TECHNIQUE: 4 fluoroscopic images of the lumbar spine were obtained during procedure performed by Dr. Del Rio. Radiologist was not present for the imaging or procedure. The amount of fluoroscopy time used during this procedure was 0.4 minutes. Cumulative radiation dose of mGy. COMPARISON: None. FINDINGS: Images demonstrate needle advanced to the epidural space via an interspinous process approach at L4-L5. Contrast injection opacifies the epidural space extending cephalad to L4. IMPRESSION: 1. Fluoroscopy utilized during L4-L5 interlaminar epidural steroid injection. See procedure note for further detail. Reviewed, dictated and finalized at location A. IMPRESSION: 1. Fluoroscopy utilized during L4-L5 interlaminar epidural steroid injection. S ee procedure note for further detail.
[2025-01-07 11:35] VITALS: BP 118/87; PULSE 83; RESP 20; TEMP 36.2; O2SAT 99; BMI 33.9
--- NOTE | 2025-01-07 12:19 | P.OP_ITS ---
Procedure Note - Detailed Date of Procedure 01/07/25 Pre-op Diagnosis Lumbar Spinal Stenosis w/Neurogenic Claudication Post-op Diagnosis Same Procedure Performed Midline Lumbar Interlaminar Epidural Steroid Injection at L4-5 under Fluoros copic Guidance and with Contrast Control. Surgeon Reji Del Rio MD Anesthesia Local Description of Procedure INFORMED CONSENT: Risks, benefits and alternatives to the procedure were discussed in detail with the patient who expressed explicit understanding and consent to proceed. Patient was informed verbally and in written form regarding the risks associated with the procedure including the low risk of serious infection, bleeding/bruising, allergic reaction, nerve or organ injury, paralysis, procedural site pain or discomfort, worsening pain and/or mobility, failure to treat and/or disfigurement. The patient expressed explicit understanding and consent to proceed. All materials required for the procedure were available prior to procedure start. Site and side were marked prior to procedure and confirmed in the presence of the patient. PROCEDURE IN DETAIL: The patient was brought to the procedural suite and placed in the prone position. Patient was made comfortable with use of pillows under the head/chest, hips and ankles. Skin overlying the injection site was prepared broadly with ChloraPrep applicator and draped in a sterile manner. Aseptic technique was employed throughout. The endplates of the vertebral body at the site of interest were aligned in the AP view. Slight caudad tilt and ipsilateral oblique angulation was utilized to optimize visualization of the targeted posterior intervertebral foramen at L4-5. Local anesthesia was established by infiltration with approximately 5 mL of 2% lidocaine via a 1-1/2 inch 27-gauge needle. A 20-gauge 4-inch Tuohy epidural needle was advanced intermittently until appropriate loss of resistance to air was identified via plastic loss of resistance syringe. Lateral view was used to confirm the appropriate positioning of the needle tip within the posterior epidural space. In the AP and lateral views, a total of 2.0 mL of Omnipaque 300 contrast medium was injected after negative aspiration for CSF, blood or other bodily fluid, showing appropriate posterior epidural spread of contrast without evidence of intravascular or intrathecal placement. After a repeat negative aspiration for blood or other bodily fluid, a 4 mL solution containing 10 mg of dexamethasone in sterile PF Normal Saline was injected after negative repeat aspiration. Appropriate spread of the injectate was confirmed with washout of previously injected contrast. No parasthesias were elicited. Needle was removed completely intact without difficulty. Images were saved and documented in the patient chart. Patient's skin was cleaned and sterile bandage applied. The patient tolerated the procedure well. The patient was transported to the recovery area in stable condition where they were observed for an appropriate amount of time prior to discharge, without evidence of complication. The patient was instructed to avoid excessive activity for the next 48 hours, including climbing and frequent use of stairs. Showers only for 48 hours. They were instructed not to drive or operate heavy machinery for 24 hours. They are to monitor for severe headaches, fevers, chills, night sweats, erythema/swelling at the site or any other signs of infection, bleeding/bruising, bowel or bladder changes as well as new pain, weakness or numbness in the upper or lower extremity. Should they notice these changes, they are instructed to call our office immediately or report directly to the nearest Emergency Department if no answer or if after posted office hours. COMPLICATIONS: None COMMENTS: None CONTRAST WASTED: 28 mL Omnipaque 300. Complications No immediate complications Condition Stable Disposition Same day [facility] Billing Surgery - Charge Forward: Surgery Billing
--- NOTE | 2025-01-07 12:19 | WPDHPUPDATE1 ---
History and Physical Update Update Date/Time: 01/07/25 12:19 History and Physical has been reviewed, including an updated exam of the patient. There are NO changes in the patient's condition. Risks, benefits, and alternatives have been discussed and questions answered. Patient agrees to proceed with procedure.
[2025-01-07 12:28] VITALS: BP 123/77; PULSE 77; RESP 15; O2SAT 97
[2025-01-07 12:34] VITALS: BP 110/73; PULSE 77; RESP 15; O2SAT 99
[2025-01-07] MEDS: DEXAMETHASONE SODIUM PHOSP/PF 10 MG/ML 1 ML VIAL (12:34)
[2025-01-07] MEDS: BUPivacaine HCL 0.5% 10 ML AMP (12:34)
[2025-01-07 12:41] VITALS: BP 107/88; PULSE 82; RESP 18; O2SAT 98
--- NOTE | 2025-01-07 13:20 | SUR.PHASEII ---
1258; PT DRESSED AND READY TO GO. WAITING ON RODENT CONTROL WORKER TO ARRIVE AT FACILITY
--- NOTE | 2025-01-07 13:53 | SUR.PHASEII ---
1320; PT STATES HER DAUGHTER, (FRAMING INSPECTOR TODAY) WAS IN A CAR ACCIDENT. ANOTHER FAMILY MEMBER IS COMING TO PICK HER UP NOW. IT COULD BE ANOTHER 30-45 MINUTES
== END 2025-01-07 14:00 | disposition home or self-care (01) ==
PROVIDERS: PCP Nurse Practitioner Family; Visit Provider Anesthesiology Pain Medicine
PROC: (CPT 62323; principal; 2025-01-07 12:10)
DX: M48.062 Spinal stenosis, lumbar region with neurogenic claudication (principal)
CPT/HCPCS: 62323; 99199

== ENCOUNTER 2025-02-04 07:46 | Day surgery (SDC) | payer MEDICAID, SELFPAY ==
--- NOTE | ~2025-02-04 | XR_ITS ---
EXAMINATION: XR fluoroscopy no charge INDICATION: RIGHT L3-4 TRANSFORAMINAL STEROID INJECTION. COMPARISON: None TECHNIQUE: 17 fluoroscopic images of the lumbar spine were obtained during steroid injection. Fluoroscopy exposure time was 24.5 seconds. Air Kerma 10.47 mGy. FINDINGS/IMPRESSION: No radiologist was present or involved at the time of the procedure. Static images were submitted for interpretation. Images demonstrate placement of a needle and injection of contrast for placement. Fluoroscopic documentation of lumbar spine steroid injection with contrast injection for control purposes. Please refer to the operative note for complete procedural details. Reviewed, dictated and finalized at location A. T IRONWORKER
--- NOTE | 2025-02-04 06:02 | WPDHPUPDATE1 ---
History and Physical Update Update Date/Time: 02/04/25 06:02 History and Physical has been reviewed, including an updated exam of the patient. There are NO changes in the patient's condition. Risks, benefits, and alternatives have been discussed and questions answered. Patient agrees to proceed with procedure.
--- NOTE | 2025-02-04 06:04 | P.OP_ITS ---
Procedure Note - Detailed Date of Procedure 02/04/25 Pre-op Diagnosis Lumbar Radiculopathy Post-op Diagnosis Same Procedure Performed Right Lumbar Transforaminal Epidural Steroid Injection under Fluoroscopic Guidance and with Contrast Control at L3-4. Surgeon Reji Del Rio MD Anesthesia Local Description of Procedure INFORMED CONSENT: Risks, benefits and alternatives to the procedure were discussed in detail with the patient who expressed explicit understanding and consent to proceed. Patient was informed verbally and in written form regarding the risks associated with the procedure including the low risk of serious infection, bleeding/bruising, allergic reaction, nerve or organ injury, p aralysis, procedural site pain or discomfort, worsening pain and/or mobility, failure to treat and/or disfigurement. The patient expressed explicit understanding and consent to proceed. All materials required for the procedure were available prior to procedure start. Site and side was marked prior to procedure and confirmed in the presence of the patient. PROCEDURE IN DETAIL: The patient was brought to the procedural suite and placed in the prone position. Patient was made comfortable with use of pillows under the head/chest, hips and ankles. Skin overlying the injection site was prepared broadly with ChloraPrep applicator and draped in a sterile manner. Aseptic technique was employed throughout. The endplates of the vertebral body at the site of interest were aligned in the AP view. Ipsilateral oblique angulation was utilized to better visualize the neuroforamen of interest. Local anesthesia was established by infiltration with approximately 5 mL of 0.5% PF lidocaine via a 1-1/2 inch 27-gauge needle. A 22-gauge 3.5 inch Efren (pencil point) spinal needle was advanced until the needle approached the 6 o'clock position on the pedicle just superior to the exiting nerve root. on the right at L3-4. Lateral view was utilized to confirm appropriate position of the needle tip within the superior and posterior portion of the respective foramen. In an AP view, 1 mL of Omnipaque 300 contrast medium was injected after negative aspiration for CSF, blood or other bodily fluid, showing appropriate neurogram without evidence of intravascular or intrathecal spread of contrast. Digital subtraction imaging was used with an additional 1ml of the same contrast medium to confirm absence of intravascular contrast spread. A 1mL solution containing 10 mg of dexamethasone was injected after negative repeat aspiration. Appropriate spread of the injectate was confirmed with washout of previously injected contrast. No parasthesias were elicited. Needle was removed completely intact without difficulty. Images were saved and documented in the patient chart. Patient's skin was cleaned and sterile bandage applied. The patient tolerated the procedure well. The patient was transported to the recovery area in stable condition where they were observed for an appropriate amount of time prior to discharge, without evidence of complication. The patient was instructed to avoid excessive activity for the next 48 hours, including climbing and frequent use of stairs. Showers only for 48 hours. They were instructed not to drive or operate heavy machinery for 24 hours. They are to monitor for severe headaches, fevers, chills, night sweats, erythema/swelling at the site or any other signs of infection, bleeding/bruising, bowel or bladder changes as well as new pain, weakness or numbness in the upper or lower extremity. Should they notice these changes, they are instructed to call our office immediately or report directly to the nearest Emergency Department if no answer or if after posted office hours. COMPLICATIONS: None COMMENTS: None CONTRAST WASTED: 26 mL Omnipaque 300. STEROID WASTED: 0 mg of dexamethasone. Complications No immediate complications Condition Stable Disposition Same day [facility] Billing Surgery - Charge Forward: Surgery Billing
--- OUTSIDE RECORDS SUMMARY | 2025-02-04 07:53 | XMS_ITS | Encounter Summary ---
Author Organization [facility] Address [address] [place] [address] Care Team Providers Care Contact Worker Lithography Name Role Phone Nicki Kasper MD Primary Care Provider Unavailab le Encounter Details Date Type Department Care Team (Late st Contact Info) Description 09/01/2018 Abstract SFL CONVERSION [address] [place] [address] , Generic Conversion, Social History Tobacco Use [...] on filedocumented in this encounter Care Teams Contact Worker Lithography Relationship Specialty Start Date End Date Nicki Kasper MD PCP - General FAMILY PRACTICE 06/05/18 08/25/22 documented as of this encounter
--- OUTSIDE RECORDS SUMMARY | 2025-02-04 07:53 | XMS_ITS | Clinical Summary ---
Author Organization [facility] Address [address] [place] [address] Care Team Providers Care Special Education Coordinator Name Role Phone Unavailable Primary Care Provider [...] 09/20/2019 Stroke-like symptoms 09/19/2019 Acute ischemic stroke 09/19/2019 Degeneration of lumbar intervertebral disc 03/06 Unstable angina 06/05/2018 Essential hypertension 06/05/2018 Family history of [...] 59 10/29/2019 1:49 PM CDT Temperature 36.7 C (98 F) 10/29/2019 1:49 PM CDT Respiratory Rate 20 09/21/2019 9:11 AM CDT Oxygen Saturation 94% 10/29/2019 1:49 PM CDT Inhaled Oxygen Concentration - - Weight 90.8 kg (200 lb 3.2 oz) 10/29/2019 1:49 P M CDT Height 165.1 cm (5' 5) 10/29/2019 1:49 PM CDT Body Mass Index [...] Vaccines (1 of 2) 11/27/2013 Pneumococcal Vaccine: 50+ Years (2 of 2 - PPSV23, PCV20, or PCV21) 11/13/2018 09/18/2018 Mammogram Screening 09/10/2021 09/11/2019, 01/25/2013 ASCVD LDL 04/07/2023 04/07/2022, 09/20/2019, 06/06/2018 RSV Immunization or 60+ Years (1 - Risk 60-74 years 1-dose series) 2023 COVID-19 Vaccine ( - 2024-2 6 season) 2024 Influenza Adult (#1) 2024 Hepatitis A Vaccines Aged Out No long er eligible based on patient's age to complete this topic Meningococcal B Vaccine Aged Out No l [...] Comments LIPID PANEL Routine 04/07/2022 7:21 AM INSPECTING MACHINE ADJUSTER Hypothyroidism Fibromyalgia MG SCREENING W CARLOS MANISH DIGI Routine 09/11/2019 7:12 AM CDT Visit for screening mammogram from Last 3 Months or Most Recently Relevant to Health Maintenance Results * (ABNORMAL) LIPID PANEL (04/07/2022 7:21 AM INSPECTING MACHINE ADJUSTER) CHOLESTEROL 180 <200 MG/DL 04/07/2022 7:48 AM INSPECTING MACHINE ADJUSTER [facility] Comment: THE NATIONAL LIPID ASSOCIATION AND THE NATIONAL CHOLESTEROL EDUCATION PROGRAM (NCEP) HAVE SET THE FOLLOWING GUIDELINES FOR TOTAL CHOLESTEROL IN ADULTS AGES 18 AND UP. DESIRABLE: <200 BORDERLINE HIGH: 200-239 HIGH: > OR = 240 TRIGLYCERIDES 151(H) <150 MG/DL 04/07/2022 7:48 AM INSPECTING MACHINE ADJUSTER [facility] Comment: THE NATIONAL LIPID ASSOCIATION AND THE NATIONAL CHOLESTEROL EDUCATION PROGAM (NCEP) HAVE SET THE FOLLOWING GUIDELINES FOR TRIGLYCERIDES IN ADULTS AGES 18 AND UP. NORMAL: <150 BORDERLINE HIGH: 150 TO 199 HIGH: 200 TO 499 VERY HIGH: >499 HDL 59 >49 MG/DL 04/07/2022 7:48 AM INSPECTING MACHINE ADJUSTER [facility] Comment: THE NATIONAL LIPID ASSOCIATION AND THE NATIONAL CHOLESTEROL EDUCATION PROGAM (NCEP) HAVE SET THE FOLLOWING GUIDELINES FOR HDL CHOLESTEROL IN ADULTS AGES 18 AND UP. MALES: >39 FEMALES: >49 LDL-C 91 <100 MG/DL 04/07/2022 7:48 AM INSPECTING MACHINE ADJUSTER [facility] Comment: THE NATIONAL LIPID ASSOCIATION AND THE NATIONAL CHOLESTEROL EDUCATION PROGAM (NCEP) HAVE SET THE FOLLOWING GUIDELINES FOR LDL CHOLESTEROL IN ADULTS AGES 18 AND UP. DESIRABLE: <100 ABOVE DESIRABLE: 100 TO 129 BORDERLINE HIGH: 130 TO 159 HIGH: 160 TO 189 VERY HIGH: >189 VLDL CALCULATION 30 MG/DL 04/07/19 7:48 AM INSPECTING MACHINE ADJUSTER [facility] Comment:REFERENCE RANGE NOT ESTABLISHED CHOL/HDL RATIO 3.1 04/07/2022 7:48 AM INSPECTING MACHINE ADJUSTER [facility] Comment:REFERENCE RANGE NOT ESTABLISHED LDL/HDL 1.5 04/07/2022 7:48 AM INSPECTING MACHINE ADJUSTER [facility] Comment:REFERENCE RANGE NOT ESTABLISHED NON HDL CHOLESTEROL 121 MG/DL 04/07/2022 7:48 AM INSPECTING MACHINE ADJUSTER [facility] Comment:REFERENCE RANGE NOT ESTABLISHED 04/07/2022 7:21 AM INSPECTING MACHINE ADJUSTER Chad Roberts MD LABORATORY Final Result [facility] [address] [place] [address], * MG SCREENING W CARLOS MANISH DIGI (09/11/2019 7:12 AM CDT) Anatomical Region Laterality Modality Breast Bilateral Mammography 09/11/2019 1:46 PM CDT Impressions 09/11/2019 1:49 PM CDT IMPRESSION: No mammographic findings suggestive of malignancy. Recommendation: 1: Routine screening mammogram bilateral in 1 year Assessment: ACR BI-RADS Category 2 - Benign. [...] skin thickening or other abnormalities are present. No significant change from the prior exam. us Nicki Kasper MD MAMMO Final Result from Last 3 Months or Most Recently Relevant to Health Maintenance Insurance [id number] [place] [address] [place] [address] MEDICAID C/O PROVIDER SERVICES [place] [address] Advance Directives * Full Code (Latest Code Status on File) Date Activated Date Inactivated Comments 09/19/2019 1:18 PM 09/21/2019 2:07 PM * Full Code Date Activated Date Inactivated Comments 06/05/2018 4:42 PM 06/06/2018 8:59 PM
[2025-02-04 09:06] VITALS: BP 109/73; PULSE 78; RESP 20; TEMP 36.5; O2SAT 95
[2025-02-04] MEDS: DEXAMETHASONE SODIUM PHOSP/PF 10 MG/ML 1 ML VIAL (09:20)
[2025-02-04] MEDS: LIDOCAINE 2% PF LOCAL INJ 5 ML VIAL INFILTRATE (09:20)
[2025-02-04 09:24] VITALS: BP 107/64; PULSE 77; RESP 12; O2SAT 94
[2025-02-04 09:28] VITALS: BP 98/63; PULSE 79; RESP 19; O2SAT 94
[2025-02-04 09:36] VITALS: BP 98/71; PULSE 81; RESP 16; O2SAT 97
== END 2025-02-04 09:54 | disposition home or self-care (01) ==
PROVIDERS: PCP Nurse Practitioner Family; Visit Provider Anesthesiology Pain Medicine
PROC: (CPT 64483; principal; 2025-02-04 09:10)
DX: M54.16 Radiculopathy, lumbar region (principal)
CPT/HCPCS: 64483; 99199